=== PATIENT | female | born 1965 | race Caucasian/White ===

== ENCOUNTER 2018-07-28 09:00 | Outpatient (RCR) | payer OTHER, SELFPAY ==
--- NOTE | 2018-07-28 09:03 | BH.SGPN.GN ---
Behaviors/Verbalizations/Mental Status: []Client alert and oriented, casual dress, hygiene tended to. Eye contact good. Motor activity appropriate. Speech within normal limits. Affect congruent, mood anxious. Thoughts linear, logical, no signs of hallucinations or delusions. Reviewed client?s symptom tracker, no signs of suicidal ideation, plan, or intent as of today. Client Response/Progress/Benefit: []Pt was a passive participant, attentive to others and shared thoughts and feelings when elicited by therapist. Emotion for today is hopeful and afraid. Pt identified mental health positive to be following through with attending IOP from her counselor's recommendation. Additional positive identified as opening up to her friends about going to a more intensive counseling program. Pt reported she could relate to peers comments about parents being judgemental and not understanding of mental health. Pt's first day in IOP. Pt seemed to benefit from expressing thoughts and supportive environment. Continued IOP level of care recommended to increase self-awareness, increase positive coping skills and prevent decompensation. Narrative Note: []
--- NOTE | 2018-07-28 10:07 | BH.SGPN.GN ---
Behaviors/Verbalizations/Mental Status: []Client alert and oriented, casually dressed and groomed. Eye contact good. Motor activity appropriate. Speech within normal limits. Affect congruent, mood anxious. Thoughts linear, logical, no signs of hallucinations or delusions. Client Response/Progress/Benefit: []Client responded well to session, engaged throughout activity, occasionally contributing to discussion. Provided insight regarding topic of social supports. Client shared there are barriers to seeking social supports such as ?our support not being steady all the time.? However, there are also consequences of not having a support system such as increased mental health symptoms and feeling overwhelmed. Identified benefits of social support as getting new ideas and not feeling alone. Client was engaged during the group activity and used self-deprecating language at times. The group helped client challenge her negative self-talk. Appeared to benefit from gaining awareness of barriers that keep people from seeking social support as well as connecting with peers. Client?s first day of IOP. No progress to document. Client to continue IOP to prevent decompensation and reduce severity of symptoms.
--- NOTE | 2018-07-29 11:08 | BH.SGPN.GN ---
Addendum entered and electronically signed by Kamari Lopez [facility] 02/13/19 09:19: incorrect date; should be 07/30/18 Original Note: Behaviors/Verbalizations/Mental Status: [Pt eye contact good, casually and neatly dressed, motor activity appropriate, speech normal rate and tone, mood depressed, flat affect, thoughts linear and intact, no evidence of delusions or hallucinations] Client Response/Progress/Benefit: [Pt receptive of session, provided input to discussion and engaged throughout. Pt contributed to finding connections between barriers faced in the challenge activity and those present in utilizing social supports in daily life. She identified a barrier for her is feeling like she can?t ask for help. Pt did well to provide input to discussion about the different types of support and worked with the group to identify strategies for improving development of new supports and utilization of current supports. Pt seemed to benefit from discussion on how to increase supports and expressed connecting with barriers identified by fellow participants. She displayed progress in ability to identify a type of support she would like to improve upon and creating actionable steps to promote follow-through. Indicated wanting to improve use of her 12-step program as support. Expressed plans to do so by identifying and reaching out to new supports and reconnecting with old supports, as well as getting back into going to meetings. Client to continue IOP level of care to prevent decompensation, improve insight into mental health and symptom management, as well as maintain safety.] Narrative Note: []
--- NOTE | 2018-07-30 09:10 | BH.SGPN.GN ---
Behaviors/Verbalizations/Mental Status: [] Eye contact is good. Motor activity is appropriate. Appearance is casual. Speech is Appropriate. Mood is depressed. Affect is flat. Thoughts are linear and logical. No evidence of psychosis. Reviewed daily check in sheet and no reports of suicidal ideations or intent. Client Response/Progress/Benefit: [] Pt was an active participant in group discussion. Emotion for today is anxious and sad. Shared that her son had called her last evening in crisis. States that this is not uncommon as son will often overwhelm himself and then looks to her to solve problems. She reports that she was able to set some boundaries and stepped back from the situation. Reports that in the past she would have taken on the role of problem-solver which would have increased her stress, worry, and depression. Shared that since starting IOP she has felt encouraged and less hopeless. Progress noted per pt report. Benefited from group support, feedback, and encouragement. Will continue in IOP to maintain safety, stabilize mood, and prevent decompensation. . Narrative Note: []
--- NOTE | 2018-07-30 10:10 | BH.SGPN.GN ---
Behaviors/Verbalizations/Mental Status: []Client alert and oriented, neatly dressed and groomed. Eye contact good. Motor activity appropriate. Speech within normal limits. Affect congruent, mood depressed, anxious. Thoughts linear, logical, no signs of hallucinations or delusions. Client Response/Progress/Benefit: []Client responded well to session, passive participant and taking notes. Client listened to the discussion of how life is made of up different internal and external positive and negative forces and how those forces impact one?s mental health. Client nodded that growth comes from finding a balance of internal and external forces as well as taking personal responsibility. Client nodded at the examples of positive forces including healthy coping skills and awareness. Client nonverbally agreed with examples of negative forces to be negative thinking and mental health. Client participated in the activity and took a passive role, but client was able to connect the importance of balance. Client appeared to benefit from gaining awareness of how positive and negative forces can cause growth. ?Client?s second day of IOP, no notable progress. Client continues to demonstrate depressive symptoms and can benefit from ongoing IOP treatment.
--- NOTE | 2018-07-30 11:14 | BH.SGPN.GN ---
Behaviors/Verbalizations/Mental Status: [Client alert and oriented, casually dressed and groomed. Eye contact good. Motor activity appropriate. Speech within normal limits. Affect congruent and mood anxious and euthymic. Thoughts linear, logical, no signs of hallucinations or delusions.] Client Response/Progress/Benefit: [Client willing to participate in activity and provided some input throughout. Pt did well to follow direction, challenge herself to give some input, and encourage fellow participants in group. Pt worked with group to identify positive and negative forces influencing group progress in the activity and did well to relate this back to daily life. Client completed reflection worksheet which identified positive and negative forces that impact mental wellness. Client noted positive forces as: her children, intelligence, compassion, willingness to ask for help, and treatment. Identified negative forces as: negative thoughts, poor boundaries, isolation, and lack of self-awareness. Client seemed to benefit from increased awareness of personal positive and negative forces in life and the impact they have on mental health and wellness. Progress noted in pt ability to identify positive forces of resilience factors supporting progress. Client to continue IOP level of care to continue to promote healthy change behaviors, improve ability to regulation emotions and set healthy boundaries, and prevent decompensation.] Narrative Note: []
--- NOTE | 2018-08-01 09:06 | BH.SGPN.GN ---
Behaviors/Verbalizations/Mental Status: [Eye contact is good. Motor activity is appropriate. Appearance is neat and casual. Speech is Appropriate. Mood is depressed, anxious. Affect is flat. Thoughts are linear and logical. No evidence of psychosis. Reviewed daily check in sheet and no reports of suicidal ideations or intent.] Client Response/Progress/Benefit: [Pt was an active participant in group discussion, providing supportive feedback and able to connect with fellow participants responses. Emotion for today is anxious ?but better than earlier in the week?. Shared that she challenged herself to take a small step in practicing self-care and expressed practicing some mindfulness activities when feeling overwhelmed. She reports that she was able to continue to work on applying thought challenging skills when tempted to try and ?fix? her son?s problems, expressed reminding herself to weigh the pros and cons and think of the potential impacts on reinforcing both of their anxiety. Reports that this is significant progress for her as in the past pt would have struggled to consider her own mental health needs and worried more about others becoming upset with her. Benefited from group support, feedback, and encouragement. Will continue in IOP to maintain safety, stabilize mood, and prevent decompensation.] Narrative Note: []
--- NOTE | 2018-08-01 10:30 | BH.SGPN.GN ---
Behaviors/Verbalizations/Mental Status: []Client alert and oriented, neatly dressed and groomed. Eye contact good. Motor activity appropriate. Speech within normal limits. Affect constricted, mood depressed. Thoughts linear, logical, no signs of hallucinations or delusions. Client Response/Progress/Benefit: []Client responded somewhat well to session, quiet, passive participant. Client did not engage in discussion of quote or topic of personal pitfalls. However, appeared to connect with the topic of personal pitfalls and how they can prevent mental health progress as shown by her nonverbals. Client nodded at the group?s examples of barriers that keep people from mental health progress and examples of personal pitfalls. Client participated in the group activity. Client was passive, but she became frustrated at times and shared ?let?s give up.? The group was able to connect this frustration and urge to quit to their daily lives. The group processed the consequences of feeding into those urges. Client?s first week in IOP. Client appears to be taking notes and gaining insight. Client to continue IOP to prevent decompensation and increase mood stability.
--- NOTE | 2018-08-01 11:30 | BH.SGPN.GN ---
Behaviors/Verbalizations/Mental Status: []Client alert and oriented, casually dressed and groomed. Eye contact good. Motor activity appropriate. Speech within normal limits. Affect constricted, mood depressed. Thoughts linear, logical, no signs of hallucinations or delusions. Client Response/Progress/Benefit: []Limited participation in group discussion, however was attentive and was seen nodding in agreement with group suggestions. Pt completed a worksheet where she identified her own personal pitfalls. Personal pitfalls included: low self-esteem, worried about doing the right thing all the time, not asking for help, saying I'm fine when I'm not, and people pleasing. Group worked together to identify strategies to overcome personal and general pitfalls which included; actively participating in mental health treatment, setting realistic expectations, positive self-talk, utilizing support system, reflection on past experiences, identifying coping skills that are effective and not effective, reframing, and challenging negative thoughts. Benefited from identifying personal and general pitfalls and strategies to over these pitfalls. Will continue in IOP to stabilize mood. Staff continues to provide support and education regarding depression and anxiety as well as encourage medication compliance. Narrative Note: []
--- NOTE | 2018-08-01 14:34 | PCM.HP.BLA ---
History and Physical Date of Admission: 07/28/18 Chief Complaint: The patient is a 53-year old female who is beginning treatment in the intensive outpatient mental health treatment program at [facility]. She has a history of depression, anxiety and is having identity problems. History of Present Illness: The patient states that she has had problems with depression ever since he was a teenager. Depression comes and goes, and has been worsening over the past 3 weeks. She is not depressed every day. Her sleep is poor ( she also has sleep apnea). Her appetite is normal. Her energy level is poor and she lacks motivation to do things. She cries sometimes. She is able to enjoy little in life. She denies irritability. Her concentration is low. She does have hope for the future and she denied current suicidal thoughts, but has had thoughts lately that she would be better off . She also reports to a long history of problems with anxiety. She worries some. She feels tense a lot. She has been worrying lately about what to do with her life. 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 Also, she has become an empty-clarence after her son left for college. She has always had a strong identity as a mother, and it has been difficult for her to give up her mothering. In addition, she tends to do well when her time is structured, and her life has been very unstructured for the past few months. Past Psychiatric History: There have been no psychiatric admissions and the patient has never made any suicide attempts. [facility] and has seen several therapists over the years. She is currently seeing a psychiatrist. Past medicines have included Prozac, Cymbalta and nortriptyline. She said that she did best with nortriptyline but it caused weight gain. Current Psychiatric Medications: Brintellix (taking for 1 week), ativan prn Medical History: He is obese. She has multiple sclerosis and chronic fatigue treated with Gilenya. She has sleep apnea treated with CPAP. Allergies: Sulfa Family Psychiatric History: Her father had problems with anxiety and panic. Personal/Social History: The patient's parents are still and she reports a good relationship with them. She has 1 brother and has a good relationship with him. She has a counseling degree with an MA and an [employer] license. 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 For the past 18 years she was working for [employer] part-time. Before that she was working for [employer]. Review of Systems: Psychiatry: Depression and anxiety as per HPI. She is not suicidal. There is no psychosis. She is cognitively intact. Constitutional she is obese and her weight has been steady. Her energy level is poor. Neurological: Multiple sclerosis. She also has chronic fatigue. All other systems reviewed and are negative, other than as per the medical history above. Examination: The patient presents as a pleasant woman of obese build who wears glasses. She demonstrates good social skills. Vital signs: Height 5 foot 4 inches, weight 260 pounds, respirations 16. Musculoskeletal: No muscle weakness or joint pain. Her speech is fluent and spontaneous. Her language is intact. She is alert and oriented x3. Her affect is cordial and appropriate. Her recent and remote memory are intact. She demonstrates normal attention span and concentration. She has normal thought processes and abstract reasoning. Her associations are intact. There are no hallucinations or delusions and she is not actively suicidal. She demonstrates normal age appropriate fund of knowledge. Mental Status Examination: The patient presents as a pleasant woman of obese build who demonstrates good social skills. Her thoughts are logical and coherent. She reported ongoing symptoms of depression and anxiety. She is not suicidal. There is no psychosis. She is cognitively intact. Diagnoses: [] [place] I: Major depression, recurrent, severe; anxiety disorder and specified; identity disorder [place] II: Deferred. [place] III: Obesity, multiple sclerosis, chronic fatigue, sleep apnea Plan: Patient will continue on Brintellix and Ativan at the current doses. I am adding nortriptyline 10 mg daily. The patient will participate in the intensive outpatient groups. I will see her again for follow-up.
--- NOTE | 2018-08-01 14:51 | HP.PCM_ITS ---
History and Physical Date of Admission: 07/28/18 Chief Complaint: The patient is a 53-year old female who is beginning treatment in the intensive outpatient mental health treatment program at [facility]. She has a history of depression, anxiety and is having identity problems. History of Present Illness: The patient states that she has had problems with depression ever since he was a teenager. Depression comes and goes, and has been worsening over the past 3 weeks. She is not depressed every day. Her sleep is poor ( she also has sleep apnea). Her appetite is normal. Her energy level is poor and she lacks motivation to do things. She cries sometimes. She is able to enjoy little in life. She denies irritability. Her concentration is low. She does have hope for the future and she denied current suicidal thoughts, but has had thoughts lately that she would be better off . She also reports to a long history of problems with anxiety. She worries some. She feels tense a lot. She has been worrying lately about what to do with her life. 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 Also, she has become an empty-clarence after her son left for college. She has always had a strong identity as a mother, and it has been difficult for her to give up her mothering. In addition, she tends to do well when her time is structured, and her life has been very unstructured for the past few months. Past Psychiatric History: There have been no psychiatric admissions and the patient has never made any suicide attempts. She was first treated by a counselor in [facility] for depression and has seen several therapists over the years. She is currently seeing a psychiatrist. Past medicines have included Prozac, Cymbalta and nortriptyline. She said that she did best with nortriptyline but it caused weight gain. Current Psychiatric Medications: Brintellix (taking for 1 week), ativan prn Medical History: He is obese. She has multiple sclerosis and chronic fatigue treated with Gilenya. She has sleep apnea treated with CPAP. Allergies: Sulfa Family Psychiatric History: Her father had problems with anxiety and panic. Personal/Social History: The patient's parents are still and she reports a good relationship with them. She has 1 brother and has a good relationship with him. She has a counseling degree with an MA and an [employer] license. 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 For the past 18 years she was working for [employer] part-time. Before that she was working for [employer]. Review of Systems: Psychiatry: Depression and anxiety as per HPI. She is not suicidal. There is no psychosis. She is cognitively intact. Constitutional she is obese and her weight has been steady. Her energy level is poor. Neurological: Multiple sclerosis. She also has chronic fatigue. All other systems reviewed and are negative, other than as per the medical history above. Examination: The patient presents as a pleasant woman of obese build who wears glasses. She demonstrates good social skills. Vital signs: Height 5 foot 4 inches, weight 260 pounds, respirations 16. Musculoskeletal: No muscle weakness or joint pain. Her speech is fluent and spontaneous. Her language is intact. She is alert and oriented x3. Her affect is cordial and appropriate. Her recent and remote memory are intact. She demonstrates normal attention span and concentration. She has normal thought processes and abstract reasoning. Her associations are intact. There are no hallucinations or delusions and she is not actively suicidal. She demonstrates normal age appropriate fund of [place]. Mental Status Examination: The patient presents as a pleasant woman of obese build who demonstrates good social skills. Her thoughts are logical and coherent. She reported ongoing symptoms of depression and anxiety. She is not suicidal. There is no psychosis. She is cognitively intact. Diagnoses: [] [place] I: Major depression, recurrent, severe; anxiety disorder and specified; identity disorder [place] II: Deferred. [place] III: Obesity, multiple sclerosis, chronic fatigue, sleep apnea Plan: Patient will continue on Brintellix and Ativan at the current doses. I am adding nortriptyline 10 mg daily. The patient will participate in the intensive outpatient groups. I will see her again for follow-up.
--- NOTE | 2018-08-03 16:31 | BH.MDN_ITS ---
Multi-Disciplinary Note - Note 30-min Individual Time Started:: 12:36 Date: 08/01/18 Purpose of session/treatment goals addressed:: Purpose of session was to asses pt's current symptoms and stressors. Other topics included: identifying IOP treatment goals and setting small goal for weekend. Eye Contact:: Good Motor Activity:: Appropriate Appearance:: Casual Speech:: Appropriate Mood:: Depressed, Other - tearful Affect:: Constricted Thoughts:: Linear, Logical, No evidence of hallucinations/delusions noted Staff Interventions:: Therapist used open ended questions to elicit pt's current symptoms and stressors. Therapist inquired pt's thoughts about IOP. Therapist assisted pt with identifying IOP treatment goals. Therapist inquired small goal for weekend. Provided support by using active listening and validating emotions. Client Response:: Client reported I really it when asked about how IOP is going for her thus far. 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 Client shared after today's group sessions she realizes she tends to quit when she feels uncomfortable emotions or when something seems to difficult. Client reported she believes she quits because she doesn't want to fail so it's easier to stop trying then to fail. Client shared she also discovered that laughter and having a good sense of humor to be helpful with improving her mood. Client stated she wants to feel better which she identified wanting to decrease depression, increase follow through of healthy coping, decrease giving up, and increase positive thoughts. Client reported she knows healthy skills but has always struggled with applying what she knows. Client identified small goal for this weekend is to journal because it's a skill that she has found to be helpful but hasn't done in awhile. Risks/Concerns:: Client denies suicidal thoguhts, intention or plan to date. Progress Toward Goals/Plan:: Client showing progress with increased insight into how she deals with stress by giving up and recognizes importance of following through with healthy skills she knows. Session focused on identifying treatment goals for IOP. Client to continue IOP level of care to decrease depression, increase utilization of healthy coping and prevent decompensation. Time Stopped:: 13:00
--- NOTE | 2018-08-04 09:05 | BH.SGPN.GN ---
Behaviors/Verbalizations/Mental Status: [] Eye contact is good. Motor activity is appropriate. Appearance is casual. Speech is Appropriate. Mood is anxious. Affect is congruent. Thoughts are linear and logical. No evidence of psychosis. Reviewed daily check in sheet with 3/5 for suicidal ideations and 0/5 for intent. Therapist notified Client Response/Progress/Benefit: [] Pt was an active participant in group discussion. Emotion for today is anxious. Shared that she came in to IOP today instead of tomorrow to be proactive. Shared that she had anxiety about sharing too much about herself and her symptoms to her therapist on Saturday. This was uncomfortable and she believes that if she let herself ruminate on this another day it would lead to not showing for IOP tomorrow. Group praised her for her foresight. She also reports having a conversation with her on their communication skills based on group topics from last week and is hopeful this will have a positive impact. Also reports that she utilized some thought reframing skills over the holiday weekend which helped her be more social with family rather than ruminate that her two children were unable to make it back from college. Progress noted per pt. Will continue in IOP to maintain safety, prevent decompensation, and increase daily functioning. Narrative Note: []
--- NOTE | 2018-08-04 10:05 | BH.SGPN.GN ---
Behaviors/Verbalizations/Mental Status: []Pt eye contact good, casually dressed, motor activity appropriate, speech normal rate and tone, mood dysthymic, constricted affect, thoughts linear and intact, no evidence of delusions or hallucinations. Client Response/Progress/Benefit: []Client passive participant, not providing input throughout discussion, however appeared to attentively listen to peers. Client nodded that viewing situations as impossible can negatively impact one?s mental health. Client agreed with peers comments that seeing things as impossible sets you up to not try new things or to overcome difficult situations. Client nodded to others comments that some things appear impossible, but if keep trying likely can find a way to overcome or accomplish the difficult task. Client engaged in the group activity and the group did not complete the activity during second group. Client struggled with fixed thinking pitfalls during activity as evidenced by client stating she wanting to give up several times throughout activity, however despite negative thoughts she persisted and did not give up. Client appeared to benefit from gaining awareness how viewing situations as impossible can negatively impact mental health progress. Client showing progress with not giving into negative thought patterns of giving up when things get difficult. client to continue IOP level of care to decrease depression, increase use of healthy coping and prevent decompensation. Narrative Note: []
--- NOTE | 2018-08-04 11:10 | BH.SGPN.GN ---
Behaviors/Verbalizations/Mental Status: [Client maintained good eye contact, casually dressed and appropriate grooming, motor activity appropriate, speech normal rate and tone, mood depressed, affect constricted, thoughts linear, logical, no evidence of delusions or hallucinations.]] Client Response/Progress/Benefit: [Pt attentive, did well to participate in discussion and growth mindset reflection activity. She brainstormed with the group on how fixed mindset thoughts experienced in the activity impacted ability to complete the task at hand. Pt indicated thoughts of ?this is annoying? and ?we?re never going to get it? caused her to become frustrated and link desired to give up. Worked to identify important components of a growth mindset such as being willing to keep trying despite setbacks. Pt expressed having many fixed mindset thoughts but difficulties in using growth mindset reframes. With reflection and assistance from the group she was able to apply cognitive restructuring to reframe fixed thoughts of ?I?m too old to make a difference in the world? with growth mindset thought of ?I can do something meaningful today?. Benefitted from discussing benefits of growth mindset and strategies for reframing fixed thoughts. Progress in pt ability to challenge negative thoughts about self despite struggling with shutting down or wanting to give up. Continued IOP tx recommended to prevent decompensation, increase application of thought challenge skills and improve self-esteem, and continue to decrease intensity and severity of depression.] Narrative Note: []
--- NOTE | 2018-08-06 09:05 | BH.SGPN.GN ---
Behaviors/Verbalizations/Mental Status: [] Eye contact is good. Motor activity is appropriate. Appearance is casual. Speech is Appropriate. Mood is depressed. Affect is flat. Thoughts are linear and logical. No evidence of psychosis. Reviewed daily check in sheet and no reports of suicidal ideations or intent. Client Response/Progress/Benefit: [] Pt was an active participant in group discussion. Emotion for today is Scared. Shared that she has been ruminating extensively on the fact that she is not currently working. Verbalized several times that she should be working however understands that increased stress could exacerbate her mental wellness. Shared some positives and reports being more hopeful however is scared. Did not elaborate on what exactly is causing her to be fearful. Group provided feedback and challenged cognitive distortions. Benefited from group feedback. Will continue in IOP to maintain safety, prevent decompensation, and decreased depressive and negative thoughts. Narrative Note: []
--- NOTE | 2018-08-06 10:09 | BH.SGPN.GN ---
Behaviors/Verbalizations/Mental Status: []Client alert and oriented, casually dressed and groomed. Eye contact good. Motor activity appropriate. Speech within normal limits. Affect congruent, mood euthymic. Thoughts linear, logical, no signs of hallucinations or delusions. Client Response/Progress/Benefit: []Pt receptive of session AEB pt . Did well to participate in the activity and provide reflective input during session. Pt appeared to connect with various definitions of resilience provided by the group as well as ideas for how resilience can have positive impacts mental health and wellness. Pt agreed with peers that without resilience it is a lot harder to overcome difficulties or learn to ?bounce back?. Pt engaged in small group discussion about the various strategies that can help strengthen one's resilience. Indicated that making connections is an important component of resilience as it ?gives us positive reinforcement and perspective?. Pt seemed to benefit from increased awareness of various components that can contribute to increased resilience. Progress noted in his ability to provide insight as to how each resilience component can apply to own life. Continued IOP recommended to prevent decompensation, increase skill application, and continue to improve healthy boundary setting. Narrative Note: []
--- NOTE | 2018-08-06 11:12 | BH.SGPN.GN ---
Behaviors/Verbalizations/Mental Status: []Client alert and oriented, neatly dressed and groomed. Eye contact good. Motor activity appropriate. Speech within normal limits. Affect constricted, mood euthymic. Thoughts linear, logical, no signs of hallucinations or delusions. Client Response/Progress/Benefit: []Client reported at first, she was convinced that the fiber heel piece shaper ?was lying that it could be done.? However, the group stayed resilient and used different ideas to be successful. Client shared ?we were flexible to new ideas? which can also help people be resilient in their daily lives. Client was given a stress ball as a reminder of resilience. On her stress ball, client wrote ?resilience is learning, challenging, and changing. I can always learn.? Client shared this will remind her to have hope and optimism. Client reported she wants to work on moving towards her goals to further improve personal resilience. Client shared she will do this by prioritizing what goals are most important to her. Client appeared to benefit from identifying personal resilience factors. Progress noted as client was more active in group today and she reported following through with her goal from individual session. Client to continue IOP as she can increase mood stability and consistent use of coping skills.
--- NOTE | 2018-08-08 09:05 | BH.SGPN.GN ---
Behaviors/Verbalizations/Mental Status: []Client alert and oriented, neatly dressed and groomed. Eye contact good. Motor activity appropriate. Speech within normal limits. Affect congruent-tearful, mood depressed. Thoughts linear, logical, no signs of hallucinations or delusions. Reviewed client?s symptom tracker, 1/5 for suicidal ideation, 0/5 for plan, or intent as of 08/08/18. Individual therapist notified. Client Response/Progress/Benefit: []Client responded well to session, quiet, but providing input occasionally. Client reports feeling ?depressed? today. Client shared she continues to struggle with feeling hopeless and depressed, so her doctor recently changed her medications. Client reported ?I?m trying not to be negative and think that won?t work.? Client able to recognize use of cognitive distortions. Client?s mental health wins include opening up to her doctor and one of her friends about client?s mental health. Client shared it is challenging for her to be vulnerable, so this was significant for client. Client became tearful and shared her friend did not provide the support client was hoping to receive, but that client was still proud of herself. Client appeared to benefit from connecting with peers and processing stressors. Progress noted in reaching out to supports, but client continues to report mood dysregulation.
--- NOTE | 2018-08-08 10:18 | BH.SGPN.GN ---
Behaviors/Verbalizations/Mental Status: []Client alert and oriented, casually dressed and groomed. Eye contact fair. Motor activity appropriate. Speech within normal limits. Affect congruent to topic being discussed, mood euthymic. Thoughts linear, logical, no signs of hallucinations or delusions. Client Response/Progress/Benefit: []Client responded well to session, attentive and participating in small group discussion. Group identified the benefits to setting boundaries as well as the consequences of not setting healthy boundaries. Client reported she has a difficult time saying no to others because she doesn't want to disappoint others. Client stated she believes other people deserve to engage in self-care, but doesn't believe she has the right to engage in self-care. Client engaged during discussion of the different types of boundaries and engaged in the self-assessment activity. Client seemed to benefit from increased awareness how poor boundaries can negatively impact mental health. Client to continue IOP tx to increase use of healthy coping skills, prevent decompensation, and challenge distorted thoughts. Narrative Note: []
--- NOTE | 2018-08-08 11:24 | BH.SGPN.GN ---
Behaviors/Verbalizations/Mental Status: [Client alert and oriented, casual dress, hygiene appropriate. Eye contact good. Motor activity appropriate. Speech within normal limits. Affect congruent, mood anxious and euthymic. Thoughts linear, logical, no signs of hallucinations or delusions. ] Client Response/Progress/Benefit: [Pt responded well to session, active participant AEB willingness to provide input and ask questions throughout. Pt did well to engage in the boundary self-assessment activity and worked with group to further process. Pt discussed that she has been becoming much more aware of how her difficulties in maintaining healthy boundaries with her son has impacted her anxiety and increased feelings of agitation. Noted that she has been working on improving boundary setting skills but continues to struggle with consistency and feelings of guilt associated. Appeared to benefit from group discussion on strategies for further improving personal boundaries. Identified wanting to improve her ability to set and maintain healthy boundaries with others, specifically in regard to improving her ability to say ?no? to her son or refrain from doing things for him. Progress noted in pt ability to identify impact of current boundaries on mental health progress and emotion regulation skills. Pt to continue IOP tx to maintain gains made, improve communication and boundary setting skills, and continue to promote healthy change behaviors.] Narrative Note: []
--- NOTE | 2018-08-08 14:36 | BH.MDN ---
Multi-Disciplinary Note - Note 60-min Individual Time Started:: 12:37 Date: 08/08/18 Purpose of session/treatment goals addressed:: Purpose of session was to assess pt's current symptoms and stressors. Other topics included: reviewing homework from last session, reviewing cognitive triangle, and generalization of healthy coping skills. Eye Contact:: Fair Motor Activity:: Appropriate Appearance:: Casual Speech:: Appropriate Mood:: Depressed Affect:: Constricted Thoughts:: Linear, Logical, No evidence of hallucinations/delusions noted Staff Interventions:: Therapist used open ended questions to elicit pt's current symptoms and stressors. Therapist reviewed homework from last session. Provided psychoeducation on the cognitive triangle. Assisted pt with challenging negative thoughts. Worked with pt to identify strategies to help increase generalization of healthy skills. Client Response:: Pt reported she has been struggling with depressed mood. Pt unable to identify specific trigger. Pt stated she did not follow through with goal of journaling. Pt reported she is frustrated with herself because she knows skills, but continues to not use the skills to help herself. Pt connected with cognitive triangle, recognizing interconnection between thoughts, behaviors, and emotions. Responded well to pt challenging her distorted thoughts and accepted help to reframe thoughts. Pt stated she thinks if she includes use of skills into her daily schedule then she might be more likely to follow through with using skills. Risks/Concerns:: Pt endorses passive thoughts of about wishing she didn't wake up. Pt denies thoughts of wanting to actually kill herself. Denies suicidal intention to plan. Pt future focused. Agreeable to go to nearest emergency room or call 911 if unable to maintain safety. Progress Toward Goals/Plan:: Progress noted with pt reporting she was able to successfully defeat a self-harm thought by challenging the negative thought. Pt continues to report depressed state with low motivation, fatigue, and not generalizaing her healthy skills consistently. Recommended to continue IOP to increase consistent appliation of healthy skills, challenge negative thoughts and prevent decompensation. Time Stopped:: 13:30
--- NOTE | 2018-08-11 09:06 | BH.SGPN.GN ---
Behaviors/Verbalizations/Mental Status: [Pt alert and oriented, neat and casual dress, grooming appropriate. Eye contact good. Motor activity appropriate. Speech within normal limits. Affect congruent, mood anxious, dysthymic. Thoughts linear, logical, no signs of hallucinations or delusions. Reviewed client?s symptom tracker, no signs of suicidal ideation, plan, or intent as of today.?]] Client Response/Progress/Benefit: [Pt receptive of session and participated in group discussion. Emotion for today is mostly calm but kind of anxious which she attributes to beginning to see more consistent improvements in progress and ability to regulate emotions; however, continues to struggle with worry about taking additional steps towards reducing isolation and continuing to reinforce boundaries with her son. Pt indicated that she is feeling more confident in boundary setting but would benefit from continuing to take small steps in reinforcing boundaries. Pt increased use of distress tolerance skills is progress and discussed plans to begin addressing a small goal she has been putting off. Recommended continued IOP tx to further improve use of anxiety management and effective communication skills, as well as to prevent decompensation. ]] Narrative Note: []
--- NOTE | 2018-08-11 10:25 | BH.SGPN.GN ---
Behaviors/Verbalizations/Mental Status: []Client alert and oriented, causally dressed and groomed. Eye contact fair. Motor activity appropriate. Speech within normal limits. Affect constricted, mood dysthymic. Thoughts linear, logical, no signs of hallucinations or delusions. Client Response/Progress/Benefit: []Client passive participant AEB pt providing limited input throughout discussion, but appeared to listen attentively to peers. Connected with discussion on how coping with external crisis by using unhealthy coping skills could lead to personal crisis. Client completed the personal warning signs worksheet and identified crisis warning signs to include: racing thoughts, increased impulsive behavior, isolation and apathy. Benefited from group by increasing awareness of crisis and personal warning signs. Will continue IOP tx to stabilize moods, increase healthy coping and prevent decompensation. Narrative Note: []
--- NOTE | 2018-08-11 11:25 | BH.SGPN.GN ---
Behaviors/Verbalizations/Mental Status: []Client alert and oriented, neatly dressed and groomed. Eye contact good. Motor activity appropriate. Speech within normal limits. Affect constricted, mood anxious. Thoughts linear, logical, no signs of hallucinations or delusions. Client Response/Progress/Benefit: Client responded well to session as evidenced by client participating when prompted and listening attentively to others. Client identified her warning signs for crisis and gained further awareness of her earliest warning signs. Client?s top three early warning signs were a more depressed mood, racing thoughts, and drop in functioning. Client recognized that awareness of these warning signs can prevent further crisis and help client utilize healthy coping skills to break the cycle. Client created a crisis action plan to help client better manage warning signs for crisis. Client?s plan included coping skills such mindfulness techniques, motivational reminders, and positive supports. Client selected three items that will help her remember these crisis interventions including a rock, a clothespin, and a bead. Client appeared to benefit from creating a crisis action plan and increasing her self-awareness. Client to continue IOP to increase mood stability and reduce intensity of symptoms.
--- NOTE | 2018-08-14 14:37 | BH.MTP_ITS ---
Master Treatment Plan - Patient Information Program Physician:: Dr. Jessica Primary Therapist:: Latrice Lal, [facility] - Psychiatric Diagnoses Psychiatric Diagnoses:: Major depression, recurrent, severe; anxiety disorder unspecified Diagnosis Code(s):: F33.2 - Estimated LOS Estimated LOS (in weeks):: 6 Problem/Goal #1 - Problem/Goal #1 Stated Goal:: Client will reduce depression, feelings of hopelessness, and suicidal ideation due to Major Depressive Disorder through Intensive Outpatient Program. Description of Barriers: Pt has hx of not applying healthy skills and strategies which could be barrier to treatment progress. Pt's negative thinking, distorted thought patterns, and guilt from past choices could be potential barriers to progress. Functional Impact: Pt's mental health symptoms impacting pt's ability to function at baseline. Pt has loss of interest in things she once found enjoyable, extreme difficulty to complete daily tasks or chores, and isolative behaviors. Pt's depressive symptoms impacted pt's ability to funtion at work which resulted in termination of employment. Goal Relevant Strengths/Supports: Pt is intelligent, self-aware and verbalizes desire to get better. - Objectives Objective #1 Stated Objective: Identify and replace 3-4 distorted thought patterns that reinforce depressive symptoms. Interventions: Therapist will help client identify distorted, negative beliefs about self and world and replace those messages with positive, affirmative messages. Discharge Criteria: Client will have achieved this goal when can identify at least 3 distorted thought patterns and replace those messages with positive, rational responses. Target Date: 09/08/18 Review Date: 08/25/18 Objective #2 Stated Objective: Pt will decrease depressive symptoms AEB pt?s score on the DSM 5 cross-cutting measure and improve pt?s daily functioning. Interventions: Through groups and individual therapy, pt will be provided with education on cognitive distortions, mistaken beliefs, and identifying and combating negative self-talk. Therapist will assist pt with getting back into the activities she once enjoyed as well as increasing healthy coping strategies. Discharge Criteria: Pt will have met this goal when pt?s score on the DSM 5 cross cutting measure for depression has been decreased and per pt?s report daily functioning has improved. Target Date: 09/08/18 Review Date: 08/25/18 Problem/Goal #2 - Problem/Goal #2 Stated Goal:: Stabilize anxiety level while increasing ability to function on daily basis. Description of Barriers: Pt has hx of not applying healthy skills and strategies which could be barrier to treatment progress. Pt's negative thinking, distorted thought patterns, and guilt from past choices could be potential barriers to progress. Functional Impact: Pt's mental health symptoms impacting pt's ability to function at baseline. Pt has loss of interest in things she once found enjoyable, extreme difficulty to complete daily tasks or chores, and isolative behaviors. Pt's depressive symptoms impacted pt's ability to funtion at work which resulted in termination of employment. Goal Relevant Strengths/Supports: Pt is intelligent, self-aware and verbalizes desire to get better. - Objectives Objective #1 Stated Objective: Client will learn and utilize 2-3 healthy coping strategies to manage anxious symptoms. Interventions: Therapist will assist client in learning internal coping strategies to manage anxious symptoms, along with helping client identify triggers. Discharge Criteria: Client will have achieved this goal when can verbalize and has practiced at least 2 healthy coping strategies that help manage anxious symptoms. Target Date: 09/08/18 Review Date: 08/25/18 Objective #2 Stated Objective: Pt will decrease anxious symptoms AEB pt?s score on the DSM 5 cross-cutting measure improve pt?s daily functioning. Interventions: Through groups and individual therapy, pt will be provided education about anxiety?s impact on body and common physiological reaction to anxiety. Therapist will teach pt appropriate breathing techniques and build healthy coping skills to manage daily anxieties. Discharge Criteria: Pt will have met this goal when pt?s score on the DSM 5 cross cutting measure for anxiety has been decreased and per pt?s report daily functioning has improved. Target Date: 09/08/18 Review Date: 08/25/18
== END 2018-08-12 23:59 ==
LOC: BHIOP 09:00
PROVIDERS: Family Provider Nurse Practitioner Family; PCP Nurse Practitioner Family; Referring Provider Psychiatry & Neurology Psychiatry; Visit Provider Psychiatry & Neurology Psychiatry
DX: F33.2 Major depressive disorder, recurrent severe without psychotic features (principal); F41.9 Anxiety disorder, unspecified; F64.9 Gender identity disorder, unspecified; E66.9 Obesity, unspecified; G35 Multiple sclerosis; R53.82 Chronic fatigue, unspecified; G47.30 Sleep apnea, unspecified; Z79.899 Other long term (current) drug therapy
CPT/HCPCS: H0035; 90832; 90837; 90853

== ENCOUNTER 2018-08-13 09:01 | Outpatient (RCR) | payer OTHER, SELFPAY ==
--- NOTE | 2018-08-13 09:09 | BH.SGPN.GN ---
Behaviors/Verbalizations/Mental Status: [Pt alert and oriented, neat and casual dress, grooming appropriate. Eye contact good. Motor activity appropriate. Speech within normal limits. Affect congruent, mood anxious, dysthymic. Thoughts linear, logical, no signs of hallucinations or delusions. Reviewed client?s symptom tracker, no signs of suicidal ideation, plan, or intent as of today.?] Client Response/Progress/Benefit: [Pt receptive of session and participated in group discussion. Emotion for today is anxious which she attributes to increased stress regarding suggesting she begin looking for a job. Pt indicated that she does not feel ready to return to work yet and is planning to discuss this with her . Noted additional stressor as her son calling in crisis on Saturday. 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 Pt increased use of distress tolerance skills is progress. Additional mental health win as beginning her CEU courses for work which she has been putting off, this again displays progress as pt reports a hx of poor follow through. Recommended continued IOP tx to further improve use of anxiety management and effective communication skills, as well as to prevent decompensation. ] Narrative Note: []
--- NOTE | 2018-08-13 10:17 | BH.SGPN.GN ---
Behaviors/Verbalizations/Mental Status: [Client alert and oriented, casually and neatly dressed. Eye contact fair to good. Motor activity appropriate. Speech within normal limits. Affect flat, mood dysthymic. Thoughts linear, logical, no signs of hallucinations or delusions. ] Client Response/Progress/Benefit: [Pt receptive to session, engaged and actively listening throughout discussion on stress AEB taking notes and providing some input. Able to brainstorm the positive and negative aspects of stress. Pt expressed connecting most with impacts of unmanaged stress and reported this can result in increased depression and unhealthy coping. Appeared to benefit from gaining awareness of own current stressors and learning about the impact stress has on overall wellbeing. She participated in identifying current stressors impacting her mental health. Pt's current stressors include: grief, depression/mental health sx, money, physical health, her son, and her parent?s wellbeing. Pt noted that her son is currently the largest stressor as she struggles with maintaining healthy boundaries. Progress noted in improved ability to identify impact of current stressors on mental health and wellbeing. Recommended continued IOP tx to maintain stability, continue to promote skills for reducing anxiety and depressive sx, as well as improving use of stress management skills. ] Narrative Note: []
--- NOTE | 2018-08-13 14:30 | BH.MDN ---
Multi-Disciplinary Note - Note 45-min Individual Time Started:: 12:25 Date: 08/13/18 Purpose of session/treatment goals addressed:: Purpose of session was to assess pt's current symptoms and stressors. Other topics included: reviewing homework, processing guilt, and identifying small goals for the week. Eye Contact:: Good Motor Activity:: Appropriate Appearance:: Casual Speech:: Appropriate Mood:: Depressed, Other - tearful Affect:: Constricted Thoughts:: Linear, Logical, No evidence of hallucinations/delusions noted Staff Interventions:: Therapist reviewed pt's homework, exploring challenges with accomplishing some of the goals. Therapist used open ended questions to elicit pt's current symptoms and stressors. Therapist gently challenged pt's distorted thought patterns and assisted pt with identifying negative impact of overcompensating for past mistakes. Therapist provided support by using active listening and validating emotions. Client Response:: Pt reported she completed her homework from last week of identifying at least 3 positives from her day. Pt stated she was able to complete that task every day except on Saturday in which she was only able to identify one positive. Pt reported she thinks she struggled to identify positives that day because she had been emotionally impacted by her son's crisis. Pt stated her son informed her that he had been fired from his job, which resulted in pt ruminating how her son could stay at college since having a maintenance job titles job paid for his living expenses. Pt shared she was emotionally upset for over an hour but was able to use her thought record log to help her challenge her negative thoughts which eventually helped her move on. Pt stated she has gained insight that her youngest son tends to impact her emotions frequently. Pt identified her past alcohol abuse when her son was young has resulted in a lot of guilt. Pt admitted she tends to overcompensate by trying to fix situations for her son so that he doesn't have to deal with uncomfortable emotions. Pt recognizes ruminating on her past choices are not helping because she can't change the past. With assistance from therapist pt reported she knows it would help her to talk to her sons about her past choices and apologize, but stated she wasn't sure she was ready. Pt identified she has been working on trying to model appropriate behavior for her sons so she can teach her sons skills she didn't teach when they were young. Pt identified her small goal is to continue identifying 3 positives every evening and to do one activity with another friend. Risks/Concerns:: Pt denies suicidal ideation, plan or intention to date. Progress Toward Goals/Plan:: Pt is showing progress with following through on completing assigned homework from sessions and utilizing healthy coping skills outside of treatment environment. Pt also showing progress with increased insight into how her past choices continue to bring on feelings of guilt which negatively impacts her mental health. Pt continues to struggle with distorted thought patterns and difficulty managing emotions at times. Pt to continue IOP level of care to decrease depression and prevent decompensation. Time Stopped:: 13:15
--- NOTE | 2018-08-15 09:06 | BH.SGPN.GN ---
Behaviors/Verbalizations/Mental Status: []Client alert and oriented, neatly dressed and groomed. Eye contact good. Motor activity appropriate. Speech within normal limits. Affect constricted, mood anxious, euthymic. Thoughts linear, logical, no signs of hallucinations or delusions. Reviewed client?s symptom tracker, no risk for suicidal ideation, plan, or intent as of 08/15/18. Client Response/Progress/Benefit: []Client responded well to session, providing positive feedback. Client reports she feels ?anxious? today as she was completing her IOP homework and it ?triggered some things.? Client shared she plans to talk with her therapist about it which should help reduce anxiety, per her report. Client reported she had to take an Ativan this morning to help manage her symptoms. Client?s mental health wins include following through with IOP goals and finally ?using coping skills for me, not to please others.? Client stated when she first started IOP, she would try the coping skills and complete the homework ?to please my counselor.? However, now client shared she realizes she will not change if she does not do it for herself. Client also gained awareness that ?I quit things really easy.? Client reported yesterday she recognized she was about to quit while doing the laundry, but instead she followed through and it made her feel accomplished. Client appeared to benefit from reflecting on gains. Progress noted in client?s increased awareness and follow through. Client to continue IOP to promote mood stability and consistent use of healthy coping skills.
--- NOTE | 2018-08-15 10:15 | BH.SGPN.GN ---
Behaviors/Verbalizations/Mental Status: []Pt eye contact good, casually dressed, motor activity appropriate, speech normal rate and tone, mood euthymic, constricted affect, thoughts linear and intact, no evidence of delusions or hallucinations. Client Response/Progress/Benefit: []Client engaged in both group discussion and activity. Client reported she doesn't really think about giving herself credit for making small steps towards her goals. Client stated she can recognize the benefits from noting small progress, but reported it can be hard to actually apply the strategy. Group worked together to identify the benefits of setting goals which included; increased motivation, maintenance in progress, accountability, sense of accomplishment, and hope. Group discussed the barriers to following through with completing a goals which included; high expectations, low motivation, negative self-talk, putting other?s needs first, hopelessness, and not knowing where to start. Client reported another barrier that gets in her way of setting goals is past failures on goals. Client was attentive during psychoeducation on developing SMART (Specific, Measurable, Achievable, Realistic, Timely) goals as a tool to help with goal setting. Client seemed to benefit from group by learning effective strategies for goal-setting and identifying barriers to completing goals. Narrative Note: []
--- NOTE | 2018-08-15 11:20 | BH.SGPN.GN ---
Behaviors/Verbalizations/Mental Status: []Pt alert and oriented, eye contact good, casually dressed, motor activity appropriate, speech normal rate and tone, mood dysthymic, congruent affect, thoughts linear and intact, no evidence of delusions or hallucinations. Client Response/Progress/Benefit: []Pt listened attentively to others and provided input at times throughout discussion. Pt identified her short-term SMART goal is to do her cognitive distortions thought log each evening over this weekend. Pt stated this goal will benefit her by making it a habit to be more mindful of her thought patterns. Pt identified not having time as one obstacle that could get in the way of her accomplishing her goal. Pt stated she can overcome time barrier by putting it into her daily schedule. Pt stated another barrier is being interrupted by others to do something else which she stated she can overcome this barrier by setting boundaries. Pt seemed to benefit from creating a SMART goal. Pt to continue IOP level of care to continue challenging distorted thoughts, decrease depression and prevent decompensation. Narrative Note: []
--- NOTE | 2018-08-18 09:05 | BH.SGPN.GN ---
Behaviors/Verbalizations/Mental Status: []Client alert and oriented, neatly dressed and groomed. Eye contact good. Motor activity appropriate. Speech within normal limits. Affect congruent to mood, mood anxious. Thoughts linear, logical, no signs of hallucinations or delusions. Reviewed client?s symptom tracker, no risk for suicidal ideation, plan, or intent as of 08/18/18. Client Response/Progress/Benefit: []Client responded well to session, attentive and listening to peers. Client reports feeling ?anxious and nervous? today due to upcoming plans and ?all the what ifs.? The group helped client recognize her distorted thinking and shared thought challenging strategies. Client identified her mental health wins over the weekend to be using her calming coping skills to prevent a panic attack while driving and making jewelry. Client appeared to benefit from verbalizing her anxious thoughts and gaining support from peers. Progress noted in client?s generalization of coping skills, but she can continue to benefit from IOP to increase mood stability and improve daily functioning.?
--- NOTE | 2018-08-18 10:12 | BH.SGPN.GN ---
Behaviors/Verbalizations/Mental Status: [Pt alert and oriented, casually dressed. Eye contact good. Motor activity appropriate. Speech within normal limits. Affect flat, mood dysthymic. Thoughts linear, logical, no signs of hallucinations or delusions.] Client Response/Progress/Benefit: [Pt responded well to session, attentive and providing input throughout. Pt connected with discussion on different types of anxiety, as well as the difference between ?normal? anxiety and anxiety disorders. When processing quote pt stated anxiety has prevented her from asking for help and led to doing more for her children than they needed or asked for. Pt helped the group identify examples of the various ways anxiety manifests and symptoms associated with thoughts, physical symptoms, and safety behaviors. Pt gained awareness of personal physical symptoms which included: racing heart, tense muscles, fidgeting, and headache. Pt identified avoiding anxious situations, crying spells, shutting down, and becoming controlling as safety behaviors pt has engaged in that provide short term relief but increase anxiety over time. Pt appeared to benefit from gaining insight to safety behaviors and how anxiety manifests itself, as well as harmful impact of safety behaviors on mental health. Appears to be progressing with increasing awareness of mental health symptoms and impact on functioning. Will continue IOP to promote continued skill application, improve boundaries, improve mood stability, and prevent decompensation.] Narrative Note: []
--- NOTE | 2018-08-18 11:15 | BH.SGPN.GN ---
Behaviors/Verbalizations/Mental Status: []Pt eye contact good, casually dressed, motor activity appropriate, speech normal rate and tone, mood anxious, congruent affect, thoughts linear and intact, no evidence of delusions or hallucinations. Client Response/Progress/Benefit: []Client responded well to session, listening attentively to others and providing input at times. Client identified shaking, feeling on edge, and chest tightness as common physical symptoms she experiences when anxious. Client stated seeking reassurance, isolation and avoidance of situations that can increase her anxiety are her safety behaviors. Client agreed with peers that one cannot prevent anxious thoughts from occurring, but can learn strategies to manage anxiety. Client appeared to connect with mindfulness and the different ways one can practice mindfulness. Client reported she currently uses pacing and taking a walk as her healthy strategies to manage anxiety. Client created a mindfulness ?menu? and reported she plans to try using 5 senses, labeling her anxious thoughts, and diaphragmatic breathing as mindfulness and relaxation techniques to manage anxiety. Client appeared to benefit from practicing in the moment mindfulness techniques. Progress noted as client is showing improved mood and awareness of distorted thoughts. Client to continue IOP level of care to maintain gains, decrease intrusive thoughts and prevent decompensation. Narrative Note: []
--- NOTE | 2018-08-18 15:12 | BH.MDN_ITS ---
Multi-Disciplinary Note - Note 45-min Individual Time Started:: 12:18 Date: 08/18/18 Purpose of session/treatment goals addressed:: Purpose of session was to assess pt's current symptoms and stressors. Other topics included challenging distorted thoughts and self-care. Eye Contact:: Good Motor Activity:: Appropriate Appearance:: Casual Speech:: Appropriate Mood:: Depressed, Other - tearful Affect:: Constricted Thoughts:: Linear, Logical, No evidence of hallucinations/delusions noted Staff Interventions:: Therapist used open ended questions to elicit pt's current symptoms and stressors. Therapist attempted to review homework from last session however pt did not complete. Therapist elicited barriers that prevented pt from following through with goals. Therapist assisted pt with challenging and reframing negative and distorted thought patterns. Therapist provided psychoeducation about benefits and importance of self-care. Provided pt with self-care wheel to complete for homework. Client Response:: Pt reported she had an overall good weekend with improved mood and went to a movie with her . Pt stated she did not complete the homework from individual/group therapy sessions from last week. Pt attributed the lack of follow through with her goals to feeling better. Pt stated she has hx of only using her skills when she thinks she needs them. Pt reported she recognizes it is beneficial to utilize her skills consistently and not only when she is in crisis. Pt stated she has always struggled with lack of follow through expressing frustration with not knowing why she doesn't follow through. Pt agreeable to identify barriers when she doesn't follow through with a goal. Pt connected with idea of engaging in more self-care. Risks/Concerns:: Pt denies suicidal ideation, plan or intention to date. Progress Toward Goals/Plan:: Progress noted with improved mood AEB pt report. Pt also showing progress with increased self-awareness of thoughts and coping sk ills that are unhelpful for her. Pt continues to struggle with consistent application of skills and strategies. Pt to continue IOP level of care to increase generalization of healthy coping, decrease negative thought patterns and prevent decompensation. Time Stopped:: 13:00
--- NOTE | 2018-08-27 09:02 | BH.SGPN.GN ---
Behaviors/Verbalizations/Mental Status: []Client alert and oriented, neatly dressed and groomed. Eye contact good. Motor activity appropriate. Speech within normal limits. Affect flat, mood depleted. Thoughts linear, logical, no signs of hallucinations or delusions. Reviewed client?s symptom tracker, no risk for suicidal ideation, plan, or intent as of 08/27/18. Client Response/Progress/Benefit: []Client responded well to session, providing positive support to peers. Client has been sick that past two days and shared today she feels ?physically down.? However, despite being sick, client reports she has been able to utilize coping skills to such as mindfulness and grounding techniques to reduce anxiety. Client shared she has felt bad about missing IOP and was anxious about returning today. The group normalized client?s experience which appeared to reassure client that it is okay to miss when sick. Client?s current stressor is fear that she will have a MS flare up because she was sick. Client reported ?it?s an ongoing fear for me.? Client able to identify strategies to manage her anxiety today. Client appeared to benefit from connecting with peers and challenging anxious thoughts. Progress noted as client reports application of coping skills to prevent decompensation when she was sick. Client to continue IOP to promote gains and further increase mood stability.
--- NOTE | 2018-08-27 10:15 | BH.SGPN.GN ---
Behaviors/Verbalizations/Mental Status: []Client alert and oriented, neatly dressed and groomed. Eye contact good. Motor activity appropriate. Speech within normal limits. Affect constricted, mood dysthymic. Thoughts linear, logical, no signs of hallucinations or delusions. Client Response/Progress/Benefit: []Client was an active participant in group activity and discussion. Client connected with the topic and able to identify common barriers that keep people stuck from moving forward. Client shared it is important to identify internal barriers, because ?those we can change.? Client identified her current reality which client described as feeling depressed, sad, and lacking worth in life. Client able to identify her personal resilience factors in her current reality such as her willingness to learn, intelligence, insight that life will get better, and progress since starting IOP. Client shared her realistic, desired reality would be returning to work, using coping skills more consistently, and learning to reduce her ?baggage.? Client reported belief she is getting closer to her desired reality. Worked with group to identify barriers to reaching desired reality which include; lack of trust and cognitive distortions. Benefited from group as client was able to identify current mental health state, resilience factors, and barriers that are impacting progress.
--- NOTE | 2018-08-27 11:20 | BH.SGPN.GN ---
Behaviors/Verbalizations/Mental Status: [] Eye contact is good. Motor activity is appropriate. Appearance is neat. Speech is Appropriate. Mood is anxious. Affect is congruent. Thoughts are linear and logical. No evidence of psychosis. Client Response/Progress/Benefit: [] Pt was an active participant in group discussion and activity. Group worked together to identify obstacles and barriers that are keeping them from their desired reality. Identified distorted view of self, negative self-talk, lack of trust, procrastination, unrealistic expectations, and cognitive distortions as common barriers. Through experiential activity group then worked together to develop strategies to overcome these obstacles such as; reframing, reviewing positives, healthy distractions, baby steps, small goals, affirmations, setting boundaries, exposure, identify positive self-worth, adjusting expectations, and many more. Pt reports that she is not there yet regarding her desired reality and believing that strategy of affirmations would be beneficial. Narrative Note: []
--- NOTE | 2018-08-27 15:57 | BH.TPR ---
Treatment Plan Review Date of Admission:: 07/28/18 Date of Treatment Plan Review:: 08/27/18 Admitting Diagnoses:: F33.2 Major depression, recurrent, severe; anxiety disorder and specified Current Diagnoses:: F33.2 Major depression, recurrent, severe; anxiety disorder and specified Patient's Response to Treatment:: Pt consistently attends scheduled IOP sessions. Pt tends to be a passive participant as shown by limited contributions to group discussion. However, pt does appear engaged during group sessions as shown by her listening to others and taking notes throughout. Pt engages in group activities, often verbalizes desire to quit activity but able to manage emotions and finish activity. Pt tends to struggle with follow through of homework given in both individual and group sessions. Pt identifies follow through as one of her biggest problems. Status of Current Problems and Symptoms: Pt has made progress with reduction of improvement with completing ADL's, improved mood, improved motivation, and reduction in both anxious and depressive symptoms. Pt continues to struggle with anxiety related to thoughts of career choice, difficulty engaging in self-care activities, difficulty setting boundaries, and limited interest in getting involved in activities she used to enjoy doing. Problem #1 Problem Name:: reduce depression, feelings of hopelessness, and suicidal ideation Status of Goals:: Pt showing progress with decrease in depressive symptoms as demonstrated by DSM 5 cross cutting measure self-report scores. At intake pt scored a 6/8, with 6 representing severe, on the depression subscale and at review pt scored a 3/8, which indicates a reduction in depressive symptoms. Pt's overall functioning is improving with reporting decrease depressive symptoms and awareness of her distorted thoughts. Team Recommendations:: Team recommends pt continue current goal and objectives until consistent application of skills and functioning returns to baseline. Problem #2 Problem Name:: Stabilize anxiety level while increasing ability to function on daily basis Status of Goals:: Objective 1 - pt progressing on goal with being able to identify at least 2 healthy coping skills that have helped reduce pt's anxiety. Pt continues to struggle with application of healthy skills in certain situations that trigger her anxiety. Pt particularly struggles when anxious about something to do with her youngest son. Objective 2 - Pt showing progress with decrease in anxious symptoms as demonstrated by DSM 5 cross cutting measure self-report scores. At intake pt scored a 7/12, with 12 representing severe, on the anxiety subscale and at review pt scored a 5/12, which indicates a reduction in anxious symptoms. Pt's overall functioning is improving with awareness of anxious thought patterns and starting to utilize skills which is something pt has hx of struggling with doing. Team Recommendations:: Team recommends pt continue current goal and objectives until consistent application of skills and functioning returns to baseline.
--- NOTE | 2018-09-01 09:10 | BH.SGPN.GN ---
Behaviors/Verbalizations/Mental Status: [] Eye contact is good. Motor activity is appropriate. Appearance is casual. Speech is Appropriate. Mood is anxious. Affect is congruent. Thoughts are linear and logical. No evidence of psychosis. Reviewed daily check in sheet and no reports of suicidal ideations or intent. Client Response/Progress/Benefit: Pt was an active participant in group discussion. Emotion for today is anxious. Shared with the group that she completed a huge task over the weekend which involved have a difficult conversation with a family member. Reports that she was honest with this family member about her recent struggles with mental health. Reports that interaction was positive. Stressor was her father being in the hospital on Saturday. Overall she reports that she is getting more confident in herself and her ability to manage emotions. She has been really looking at her thoughts and whether they are realistic or not. Challenging thoughts and reframing thoughts which has helped her not feel as overwhelmed. Progress noted per patient. Benefitted from group support and encouragment. Will continue in IOP to maintain safety, prevent decompensation, and stabilize mood. Narrative Note: []
--- NOTE | 2018-09-01 10:19 | BH.SGPN.GN ---
Behaviors/Verbalizations/Mental Status: [Client alert and oriented, casually dressed and groomed. Eye contact good. Motor activity appropriate. Speech within normal limits. Affect congruent to topic being discussed, mood euthymic and anxious, positive. Thoughts linear, logical, no signs of hallucinations or delusions.] Client Response/Progress/Benefit: [Pt was an active participant in group discussion. Connected with quote, indicating that there are times pt has thought she communicated but was unclear or too vague. Pt agreed with peers that being vague, tone, and non-verbal communication can have negative impacts on relationships and reinforce mental health symptoms. Group discussed the MH benefits to having open and clear communication with support and providers. Group discussed the barriers that tend to impact clear and open communication which include: making assumptions, shutting down, non-verbal communication, tone of voice, and listening to respond not understand. Pt stated she is sometimes struggles to communicate effectively out of fear of begin rejected of hurting someone?s feelings. Pt was attentive during psycho-education on communications styles (aggressive, passive, passive-aggressive, and assertive), provided input on the pros and cons to each communication style. Pt seemed to benefit from increased insight on how communication styles impact mental health. Pt to continue IOP level of care to continue utilization of healthy coping skills, challenge distorted thoughts, improve mood stability, and prevent decompensation.] Narrative Note: []
--- NOTE | 2018-09-01 11:21 | BH.SGPN.GN ---
Behaviors/Verbalizations/Mental Status: [Client alert and oriented, casually dressed and appropriately groomed. Eye contact good. Motor activity appropriate. Speech within normal limits. Affect congruent, mood euthymic anxious. Thoughts linear, logical, no signs of hallucinations or delusions] Client Response/Progress/Benefit: [Client active participant AEB positive contributions and engagement throughout. Client reported she is either a passive communicator and that this has resulted in needs not getting met and supports not knowing when she is overwhelmed or struggling. Client took an active role during the discussion reviewing different communication styles and why each may be used, as well as how ineffective communication negatively impacts mental health and relationships. Client identified communication goal which is to practice being more assertive with her communication and discussing her mental health needs with supports. Client seemed to benefit from increased insight into how current communication style impacts mental health and identifying strategies for increasing effective communication skills. Client progressing as shown by report of improved consistency of skill application and ability to identify connection with materials discussed. Will continue IOP tx to promote mood stability, further improve daily functioning, and prevent decompensation.] Narrative Note: []
--- NOTE | 2018-09-03 09:10 | BH.SGPN.GN ---
Behaviors/Verbalizations/Mental Status: [Pt alert and oriented, casual dress, grooming appropriate. Eye contact good. Motor activity appropriate. Speech within normal limits. Affect congruent, mood euthymic, anxious. Thoughts linear, logical, no signs of hallucinations or delusions. Reviewed client?s symptom tracker, reports suicidal ideation at a 0/5, denies plan, or intent as of today.?] Client Response/Progress/Benefit: [Pt was engaged in discussion, providing input and feedback to the group. Emotion for today is anxious and indicated that current emotion is due to ongoing adjustments in learning to focus on her own needs rather than just those of others. Pt identified mental health wins as increased ability to make her own self-care a priority. Provided an example of doing so by asking to use her son?s car to come to group despite experience guilt about taking the vehicle. Additional mental health win is that she has been making a conscious effort to complete the homework for group and apply skills she has learned in the process. Pt shared current stressor is reminding herself not to take on her son?s problems as her own and practice maintaining healthy boundaries. Pt progress noted in increased insight regarding use of thought distortions and ability to challenge them during session. Pt recommended continued IOP tx to promote change behaviors, reinforce coping skills, and continue to decrease anxious sx.] Narrative Note: []
--- NOTE | 2018-09-03 10:18 | BH.SGPN.GN ---
Behaviors/Verbalizations/Mental Status: [Client alert and oriented, neat and casually dressed and groomed. Eye contact good. Motor activity appropriate. Speech within normal limits. Affect congruent, mood euthymic, anxious. Thoughts linear, logical, no signs of hallucinations or delusions.] Client Response/Progress/Benefit: [Client responded well, contributing to discussion throughout. Client appeared to connect with the topic of fear of failure. Client agreed that failure can lead to growth but that it is easy to get caught up in the negative perspective instead. Client noted struggling with high expectations and fear of letting others down, which makes it difficult to cope with failure and causes increased anxiety. Pt agreed with fellow participants who indicated that by focusing only on past failures and mistakes it can lead to negative thinking and giving up. Group identified the impacts of fear of failure on mental health which included: not trying, low self-esteem, all or nothing thoughts, avoidance, embarrassment, and increased mental health symptoms. Client agreed with peers that in order to move past failure it is important to challenge one?s perspective on failure and learn to redefine it in more positive terms. Shared that failure could also help you find an alternative/new opportunity that works better for you. Client seemed to benefit from increased awareness of how fear of failure can impact mental health. Client to continue IOP tx to promote use of healthy coping skills, further decrease depressive and anxiety related symptoms, improve boundaries, and prevent decompensation.] Narrative Note: []
--- NOTE | 2018-09-03 11:20 | BH.SGPN.GN ---
Behaviors/Verbalizations/Mental Status: [] Eye contact is good. Motor activity is appropriate. Appearance is casual. Speech is Appropriate. Mood is depressed. Affect is flat. Thoughts are linear and logical. No evidence of psychosis. Client Response/Progress/Benefit: [] Pt was an active participant in group activity. Completed fear of failure worksheet. Identified that fear of failure is keeping her from looking for a new job. Identified barriers to overcoming fear of failure as other's opinions of her and fear of her MH symptoms. Things that she can do to overcome fear of failing include; healthy distractions, affirmations, know that I have more good days than bad currently with MH symptoms, and other strategies to decrease intensity of thoughts of what others think. Benefited from identifying the impact that fear of failure has had on her life and developing strategies to overcome this. Narrative Note: []
--- NOTE | 2018-09-04 09:10 | BH.SGPN.GN ---
Behaviors/Verbalizations/Mental Status: [] Eye contact is good. Motor activity is appropriate. Appearance is casual. Speech is Appropriate. Mood is anxious. Affect is congruent. Thoughts are linear and logical. No evidence of psychosis. Reviewed daily check in sheet and no reports of suicidal ideations or intent. Client Response/Progress/Benefit: [] Pt spoke when prompted. Attentive and did provide appropriate feedback. Shared that she continues to have an open diaologue with her son regarding her mental health issues which she reports has made a positive impact on thier relationship and decrease some fear of stigma and judgement. Reports being in a a good place today and wanted to come to group. Discussed some upcoming stressors which are impacting her mental health and overall mood, however is utilizing mindfullness and thought-stopping skills. Also reports increasing awareness of cognitive distortions which has helped to reframe her thoughts. Notes that she does a great deal of predicting the future which is usually predicting something bad will occur. Progress noted. Benefited from group support and encouragment. Will continue in IOP to maintain safety, prevent decompensation, and increase coping skills. Narrative Note: []
--- NOTE | 2018-09-04 10:25 | BH.SGPN.GN ---
Behaviors/Verbalizations/Mental Status: [Client alert and oriented, casually dressed and groomed. Eye contact good. Motor activity appropriate. Speech within normal limits. Affect congruent, mood dysthymic, anxious. Thoughts linear, logical, no signs of hallucinations or delusions. ] Client Response/Progress/Benefit: [Client responded well to session, attentive and participating in discussion. Participated in discussion of things that can keep people feeling trapped or stuck in life including; isolation, lack of trust, past experiences, negative perspective, lack of awareness, denial, fear, and low self-esteem. Shared connecting specifically with fear of changing and fear of failure as keeping her stuck. Group discussed the connection between thoughts, emotions, and behaviors as well as how negative thinking can keep a person stuck. Client attentive during psychoeducation on maintenance cycles. Client able to identify negative thoughts that have reinforced depression and kept client feeling trapped. Client shared a negative thought maintaining depression as ?I?m not going to be able to succeed at my goals because I?ve made too many mistakes.? Client reported this thought caused increased anxiety, increased negative self-talk, increased fear and depression has, and led to avoidance. Appeared to benefit from gaining awareness of how negative thoughts reinforce mental health symptoms and keep people stuck. Progress noted in client?s prevent decompensation, increase emotional regulation and confidence levels, and maintain safety. ] Narrative Note: []
--- NOTE | 2018-09-04 11:30 | BH.SGPN.GN ---
Behaviors/Verbalizations/Mental Status: []Client alert and oriented, neatly dressed and groomed. Eye contact fair. Motor activity appropriate. Speech within normal limits. Affect constricted, mood anxious. Thoughts linear, logical, no signs of hallucinations or delusions. Client Response/Progress/Benefit: []Client responded well to session, quiet, but participating when prompted. Client appeared to connect with maintenance cycles and recognized how negative thinking can keep a person stuck. Client identified a negative thought that has kept her stuck. Client?s thought was ?I?m ugly.? Client shared when she thinks this way it causes client to feel lonely, depressed, self-conscious, and leads to avoidance. Client recognized that this thought is unrealistic. Client able to reframe the thought to ?I?m not ugly, I?m unique and have some positive qualities.? Client shared this thought would improve her mental health because she would be more willing to reach out to people, feel less depressed, and feel happier. Client appeared to benefit from practicing challenging negative thinking. Client has made progress in implementing healthy coping skills to reduce mental health symptoms. Client to continue IOP to promote gains and reinforce healthy coping skills.
--- NOTE | 2018-09-09 09:11 | BH.SGPN.GN ---
Addendum entered and electronically signed by Carmen Sanders LSW 09/10/18 14:54: Note Amended to include pt progress Note. Saved by error prior to completion. Pt engaged in group discussion, receptive of feedback provided by group. Emotion for today is depressed. Pt indicated that current emotion is due to experiencing some negative thoughts and ?catastrophizing? over the weekend. Pt discussed that the weekend started off with a mental health win as she had initially felt negative when she woke up on Saturday however spent time challenging negative thoughts in her thought log and was able to successfully reframe distortions. Pt discussed that she then went to some yard sales with her son and spent time with him rather than isolating. She shared that she struggled to apply these same thought challenge skills the following day when her younger son did not respond to her text messages checking in on him. Pt reports she instead began catastrophizing and worrying that he was hurt until she heard from him that he had been out of town but was safe. Pt continues to struggle with maintaining healthy boundaries with her younger son and indicates increased stress regarding the impact the relationship has had on her own mental health. Pt receptive of creating a coping plan for when son comes home for the summer as well as beginning to set small goals for improving boundaries. Progress noted in pt ability to identify current barriers and potential strategies in improving management of barriers. Benefited from reflecting upon treatment goal progress, challenging distortions, and using group support in identifying strategies for continuing to make progress towards goals. Recommended continued IOP tx to promote continued progress, reinforce coping skills, and prevent decompensation. Original Note: Behaviors/Verbalizations/Mental Status: [Pt alert and oriented, casual dress, grooming appropriate. Eye contact good, tearful during check-in. Motor activity appropriate. Speech within normal limits. Affect congruent, mood depressed, anxious. Thoughts linear, logical, no signs of hallucinations or delusions. Reviewed client?s symptom tracker, reports suicidal ideation at a 2/5 which is slightly higher than pt baseline, denies plan, or intent as of today.?Pt therapist will be informed of increase in SI reports and follow-up with pt to further assess for safety.] Client Response/Progress/Benefit: [] Narrative Note: []
--- NOTE | 2018-09-09 10:18 | BH.SGPN.GN ---
Behaviors/Verbalizations/Mental Status: [Client alert and oriented, casual appearance. Eye contact good. Motor activity appropriate. Speech within normal limits. Affect congruent, mood anxious, dysthymic. Thoughts linear, logical, no signs of hallucinations or delusions. ] Client Response/Progress/Benefit: [Pt responded well to session, contributing to discussion and attentive throughout AEB taking notes and proving feedback. Pt indicated connecting with the topic of cognitive distortions and reflected that she had just been telling the group of a time her thoughts tricked her over this past weekend. Pt did well to recognize this as catastrophizing and was able to work with the group on defining the various types of cognitive distortions and their impact on mental health functioning. Pt reported connecting with distortions of catastrophizing, mental filter, and jumping to conclusions. She noted that magnification often increases her anxiety and results in rumination. Appeared to benefit from increasing awareness of cognitive distortions and how they can impact emotions and behaviors. Progress noted in pt increased ability to recognize personal use of distortions and how they have impacted mental health and relationships as a result. Pt to continue IOP to prevent decompensation, increase boundary setting and self-care, as well as continue to reduce anxiety and depressive sx.] Narrative Note: []
--- NOTE | 2018-09-09 11:18 | BH.SGPN.GN ---
Behaviors/Verbalizations/Mental Status: []Client alert and oriented, neatly dressed and groomed. Eye contact good. Motor activity appropriate. Speech within normal limits. Affect congruent, mood euthymic, anxious. Thoughts linear, logical, no signs of hallucinations or delusions Client Response/Progress/Benefit: []Client responded well to session, providing ideas, but declining to participate at times. Client engaged in the activity and made the connection that challenging and replacing cognitive distortions takes awareness, time, and effort. Shared connecting with distortions of disqualifying the positives, mental filtering, and all or nothing thinking. Client helped the group practice challenging the example cognitive distortions and did well to identify evidence against negative thoughts. Client assisted the group in learning ways to combat negative thinking. Client worked on challenging her own distorted thoughts, but she declined to share them with the group. Client stated she wants to work on catching herself when using distortions and writing her thoughts down. Appeared to benefit from practicing thought challenging and gaining awareness of different strategies to combat distortions. Progress noted as client reports utilizing coping skills on a more consistent basis as well as states an improved mood. Client to continue IOP as she can continue to combat distorted thoughts of self.
--- NOTE | 2018-09-09 16:02 | BH.MDN_ITS ---
Multi-Disciplinary Note - Note 30-min Individual Time Started:: 12:20 Date: 09/09/18 Purpose of session/treatment goals addressed:: Purpose of session was to assess pt's current symptoms and stressors. Other topics included: identifying treatment progress, identifying barriers to progress and self-care. Eye Contact:: Good Motor Activity:: Appropriate Appearance:: Casual Speech:: Appropriate Mood:: Euthymic Affect:: Congruent Thoughts:: Linear, Logical, No evidence of hallucinations/delusions noted Staff Interventions:: Therapist used open ended questions to elicit pt's current symptoms and stressors. Therapist discussed treatment progress and elicited pt's thoughts about barriers of progress. Therapist explored with pt strategies that can help with builing a healthy relationship with pt's younger son. Therapist inquired on pt's progress with engaging in self-care activities. Therapist provided homework for pt to reengage in at least one self-care activity each day. Client Response:: Client reported over the past two weeks she has been doing well which she attributed to having her older son home from college. Client stated she spent a lot of quality time with her son and had a good time. Client shared she opened up to her son about her going to therapy for depression. Client identified by opening up to her son she thinks it improved their relationship and is modeling that going to counseling is a positive thing. Client shared a signficiant stressor continues to be her youngest son because she recognizes she has an enmeshed relationship. Client stated her emotions are negatively impacted by her son's actions and drama. Client shared she was emotionally unstable over the weekend when her son stopped talking to her and she thought he had gotten hurt or kidnapped. Client stated through discussing th e situation she believes her reaction to the situation is appropriate but still wants to work on setting clear boundaries with her son and not allow his emotions to control her. Client identified she will continue to work on improving her communication with her son and not trying to save him from negative emotions by solving his problems for him. Client shared she thinks she is progressing with increased self-awareness, ability to challenge and reframe distorted thoughts, and improved communication. Cient stated her barriers to progress to include not following through with self-care and being easily distracted. Client agreeable to completing homework of engaging in at least one self-care activity per day. Client stated she will talk with her about him helping with accountability because having IOP groups and individuals has pushed her to follow through with goals. Risks/Concerns:: Client reports passive thoughts of , denies plan or intention to date. Future focused. client's children serve as protective factors. Progress Toward Goals/Plan:: Client is progressing with increased self-awareness of distorted thoughts and ability to reframe or challenge thoughts. Client showing improved insight into barriers to progress. Client improving with follow through of healthy coping skills and recognition of unhelpful thought patterns. Client continues to struggle with own emotions from her youngest son's emotions. Client to continue IOP level of care to increase self-care activities, continue challenging and reframing distorted thoughts and prevent decompensation. Time Stopped:: 12:54
--- NOTE | 2018-09-10 09:10 | BH.SGPN.GN ---
Behaviors/Verbalizations/Mental Status: [] Eye contact is good. Motor activity is appropriate. Appearance is casual. Speech is Appropriate. Mood is depressed. Affect is flat. Thoughts are linear and logical. No evidence of psychosis. Reviewed daily check in sheet and no reports of suicidal ideations or intent. Client Response/Progress/Benefit: [] Pt spoke when prompted. Reports feeling disconnected from emotions. Struggling with setting boundaries with certain family members. She struggles with setting limits as she feels the need to fix everything for this family member. Will ruminate and take on their problems. Insight into the negative impact of people pleasing behaviors as well as possibility of enabling this person. Group provided feedback on setting boundaries and impact of people pleasing on MH. Benefited from group support, feedback, encouragement, and discussions. Will continue in IOP to maintain gains, prevent decompensation, and decrease long-standing depression. Narrative Note: []
--- NOTE | 2018-09-10 10:20 | BH.SGPN.GN ---
Behaviors/Verbalizations/Mental Status: [] Eye contact is good. Motor activity is appropriate. Appearance is causal. Speech is Appropriate. Mood is anxious. Affect is congruent. Thoughts are linear and logical. No evidence of psychosis. Client Response/Progress/Benefit: [] Pt participated in group activity, however provided little input during group discussion. Attentive. Group worked together to identify benefits to developing goals which included; gives us direction, motivates us, can increase self-esteem, increase confidence, increase awareness, helps us progress forward, and encourages personal growth. Group also identified barriers to setting and accomplishing goals which include; fear of failure, stressed by deadlines, anxiety, negative thoughts, and unrealistic expectations of ourself. Attentive during education on developing SMART goals. Benefited from increase awareness of goal-setting methods. Will continue in IOP to maintain gains, prevent decompensation, and decrease depression. Narrative Note: []
--- NOTE | 2018-09-10 11:23 | BH.SGPN.GN ---
Behaviors/Verbalizations/Mental Status: []Pt eye contact good, casually dressed, motor activity appropriate, speech normal rate and tone, mood euthymic, constricted affect, thoughts linear and intact, no evidence of delusions or hallucinations. Client Response/Progress/Benefit: []Pt listened attentively to others and provided input when elicited by therapist. Pt identified her short-term SMART goal is to play a physical game at least three times in a week. Pt stated this goal will benefit her by decreasing stress and be more physically active. Pt identified not viewing the goal as important as one obstacle that could get in the way of her accomplishing goal. Pt stated she can overcome this barrier by asking her to play a game with her and to remind herself the outcome if she doesn't follow through with goal. Pt stated another barrier is feeling too tired, which she stated she can overcome by choosing a time of day that she is most energized to engage in the activity. Pt seemed to benefit from creating a SMART goal. Pt to continue IOP level of care to challenge distorted thoughts, continue use of healthy coping and prevent decompensation. Narrative Note: []
--- NOTE | 2018-09-12 09:07 | BH.SGPN.GN ---
Behaviors/Verbalizations/Mental Status: [Pt alert and oriented, casual dress, grooming neat, appropriate. Eye contact good. Motor activity appropriate. Speech within normal limits. Affect congruent, mood euthymic, anxious. Thoughts linear, logical, no signs of hallucinations or delusions. Reviewed pt?s dx symptom tracker and pt denies any SI, plan, or intent as of this date.] Client Response/Progress/Benefit: [Pt engaged in group discussion, actively listening and able to provide some input. Emotion for today is a little bit happy. Indicated that current ?mental health wins? include completing the goal she had set for herself of mopping the kitchen floor as well as using positive self-talk to challenge feelings of depression and urges not to get out of bed this morning. She went on to express that being able to successfully achieve both made her feel accomplished and more hopeful. Pt shared trying to remind herself when feeling low that ?it doesn?t have to be that way all day?. Pt appeared to benefit from identifying current wins and progress in challenging thoughts. She went on to share current stressor as upcoming discharge from IOP program but did well to reflect that some anxiety can be good as it is motivating and that she has resources to take with her following completion of program. Pt recommended continued IOP tx to reinforce use of healthy skills, continue to reduce depression, and prevent decompensation.] Narrative Note: []
--- NOTE | 2018-09-12 11:25 | BH.SGPN.GN ---
Behaviors/Verbalizations/Mental Status: []Client alert and oriented, neatly dressed and groomed. Eye contact good. Motor activity appropriate. Speech within normal limits. Affect congruent, mood euthymic. Thoughts linear, logical, no signs of hallucinations or delusions. Client Response/Progress/Benefit: []Client attentive, did well to remain attentive during discussion and activity. She was contributing and taking notes as group brainstormed on how fixed mindset thoughts experienced in the activity impacted ability to complete the task at hand. Client indicated she had fixed thoughts at the beginning of the activity ?because I don?t like to not fully succeed.? However, by the end of the activity she challenged her fixed thoughts to ?we have another change to get it.? Worked with group to identify important components of a growth mindset. With reflection and assistance from the group she was able to apply cognitive restructuring to reframe fixed thoughts of ?I?ve been fired before so I?m no good.? Client reframed this to ?that?s BS, I?ve had many positive experiences and I can succeed again.? Benefitted from discussing benefits of growth mindset and strategies for reframing fixed thoughts. Progress noted in client?s improved mood and ability to challenge negative thoughts. Continued IOP recommended to further promote gains and increase mood stability.
== END 2018-09-12 23:59 ==
LOC: BHIOP 09:01
PROVIDERS: Family Provider Nurse Practitioner Family; PCP Nurse Practitioner Family; Referring Provider Psychiatry & Neurology Psychiatry; Visit Provider Psychiatry & Neurology Psychiatry
DX: F33.2 Major depressive disorder, recurrent severe without psychotic features (principal); F41.9 Anxiety disorder, unspecified
CPT/HCPCS: H0035; 90832; 90834; 90853

== ENCOUNTER 2018-09-15 09:00 | Outpatient (RCR) | payer OTHER, SELFPAY ==
--- NOTE | 2018-09-15 09:10 | BH.SGPN.GN ---
Behaviors/Verbalizations/Mental Status: [] Eye contact is good. Motor activity is appropriate. Appearance is casual. Speech is Appropriate. Mood is euthymic. Affect is full. Thoughts are linear and logical. No evidence of psychosis. Reviewed daily check in sheet and no reports of suicidal ideations or intent. Client Response/Progress/Benefit: [] Pt was active participant in group discussions. States I'm waking up less depressed than ever Discussed some coping and thought-reframing skills that she has begun to utilize which had helped tremendously. States I can't recall the last time I woke up and wasn't depressed. Identifying and challenging cognitive distortions specifically emotions reasoning. Emotion for today is calm. She is hopeful about the future and reports some consistency in her mood which has been shocking. Overall progress reported by pt. Benefited from group encouragement, feedback, discussion, and support. Will continue in IOP to maintain gains and prevent decompensation. Narrative Note: []
--- NOTE | 2018-09-15 10:25 | BH.SGPN.GN ---
Behaviors/Verbalizations/Mental Status: []Client alert and oriented, casually dressed. Eye contact good. Motor activity appropriate. Speech within normal limits. Affect congruent, mood euthymic. Thoughts linear, logical, no signs of hallucinations or delusions. Client Response/Progress/Benefit: []Pt responded well to session, provided input and able to reflect on content discussed throughout. Pt participated in group discussion regarding mental health benefits of change and barriers in making those changes. Identified making changes can improve self-esteem and confidence. Pt identified three small personal changes to improve mental health as: identifying and challenge distorted thoughts, increasing self-care, and expressing feelings to family. Pt identified barriers to making identified changes include: low self-esteem, not being aware of own needs, fear of not being heard or feelings being discounted. Pt appeared to benefit from gaining awareness of personal changes that would improve mental health and the barriers keeping client stuck. Progress noted in pt's increased awareness of barriers that impact ability to make changes in her life. Pt to continue IOP level of care to maintain gains, continue challenging distorted thoughts and prevent decompensation. Narrative Note: []
--- NOTE | 2018-09-15 11:26 | BH.SGPN.GN ---
Behaviors/Verbalizations/Mental Status: [Eye contact is good. Motor activity is appropriate. Appearance is casual, neat. Speech is Appropriate. Mood is dysthymic. Affect is congruent. Thoughts are linear and logical. No evidence of psychosis. ] Client Response/Progress/Benefit: [Pt was a willing and receptive participant throughout. She engaged in group activity and provided input to discussion. Pt listening throughout group discussion and able to identify connections between activity and strategies for overcoming barriers to making change. This was evidenced by taking notes, maintaining eye contact, and providing feedback to discussion. Identified a specific change she would like to make for her mental health, barriers to making that change, and a SMART goal to reach that change. Shared she would like to work on more actively discussing her emotions with her supports by starting with checking with herself regarding her emotional state. Pt discussed that this change would help to increase confidence and willingness to open up. Benefited from group as she was able to challenge herself to identify strategies to overcome barriers to change and create a plan for implementing one small change promoting personal growth. Pt set to continue in IOP to promote change behaviors, prevent decompensation, and increase small goal follow-through.] Narrative Note: []
--- NOTE | 2018-09-17 09:05 | BH.SGPN.GN ---
Behaviors/Verbalizations/Mental Status: []Client alert and oriented, casually dressed. Eye contact good. Motor activity appropriate. Speech within normal limits. Affect congruent, mood euthymic. Thoughts linear, logical, no signs of hallucinations or delusions. Reviewed client?s symptom tracker, no risk for suicidal ideation, plan, or intent as of 09/17/18. Client Response/Progress/Benefit: []Pt engaged in session as shown by pt providing input and openly processing with the group. Emotion for today is positive. Pt noted mental health positive as recognizing her distorted thought patterns of personalizing and jumping to conclusions when her outpatient therapist cancelled their appointment yesterday. Pt stated she was able to challenge the distorted thoughts by recognizing how irrational her thoughts were. Pt identified an additional positive as recognizing her was in a bad mood so she changed her response by being encouraging and positive to her . Pt stated she told her before he left for work you're going to crush it as a way to be positive and do something different than she would have in the past. Pt reported by allowing herself to be silly and positive she changed not only her own mood by impacted her husbands mood as well. Progress noted in application of thought challenge and focusing on the positive outside of treatment environment. Continued IOP tx recommended to maintain gains, prevent decompensation, and continue to challenge distorted thought patterns. Narrative Note: []
--- NOTE | 2018-09-17 10:25 | BH.SGPN.GN ---
Behaviors/Verbalizations/Mental Status: [Client alert and oriented, casually dressed. Eye contact good. Motor activity WNL. Speech appropriate rate/tone. Affect congruent, mood euthymic, positive. Thoughts linear, logical, no signs of hallucinations or delusions.?] Client Response/Progress/Benefit: [Pt was attentive, and an active listener during group discussion. This was evidenced by taking notes, nodding, and maintaining good eye contact throughout. Pt expressed connecting with the factors the group indicated may influence personal perspective. Shared identifying with past experiences and habits as influencing components to perspective. Pt benefited from connecting how perspective can impact mental health and wellness. Identified that a positive perspective can lead to improved hope and confidence in self. Pt shared changes she has seen in her own behaviors since beginning thought challenging and discussed celebratory dancing to encourage her ?s success. Pt did well to continue to maintain engaged and identify strategies for overcoming and challenging unhealthy perspective. Reports that continuing with thought logs and journaling will aide in maintaining and promoting a more positive perspective. Will continue in IOP to continue to promote healthy change behaviors, prevent decompensation, and maintain gains made. ] Narrative Note: []
--- NOTE | 2018-09-17 11:26 | BH.SGPN.GN ---
Client left group approximately ten minutes before session ended to meet with her individual therapist. Behaviors/Verbalizations/Mental Status: []Client alert and oriented, neatly dressed and groomed. Eye contact good. Motor activity appropriate. Speech within normal limits. Affect full, mood euthymic. Thoughts linear, logical, no signs of hallucinations or delusions. Client Response/Progress/Benefit: []Client responded well to session, attentive and contributing to discussion. Client attentive and took notes as the group discussed the impact perspective has on one?s ability to recognize and utilize strengths. The group identified that a negative perspective causes people to minimize strengths, shy away from abilities, and disqualify positives. Client able to identify personal strengths she possesses and stated, ?I circled more than I thought.? Client left group before she was able to share her strengths with group. Client stated she does not always recognize these strengths due to fear of failure, negative thinking, and mental filtering. Client helped the group identify strategies to make strengths easier to access. Some of these strategies included: looking at the big picture, awareness of distortions, and keeping track of wins. Benefited from acknowledging personal strengths and coming up with strategies to access her strengths. Client demonstrating progress AEB improved mood stability and outlook. Client stated she is beginning to feel more optimistic and confident in her coping abilities. Client to continue IOP to further promote gains and reinforce coping skills.
--- NOTE | 2018-09-18 10:11 | BH.MDN_ITS ---
Multi-Disciplinary Note - Note 30-min Individual Time Started:: 12:08 Date: 09/17/18 Purpose of session/treatment goals addressed:: Purpose of session was to assess pt's current symptoms and stressors. Other topics: identifying IOP treatment progress, establishing goals for the week, and discussing aftercare plan. Eye Contact:: Good Motor Activity:: Appropriate Appearance:: Casual Speech:: Appropriate Mood:: Euthymic Affect:: Congruent Thoughts:: Linear, Logical, No evidence of hallucinations/delusions noted Staff Interventions:: Therapist used open ended questions to elicit pt's current symptoms and stressors. Therapist reviewed treatment progress since starting IOP. Therapist explored pt's thoughts about frequency of individual counseling once discharges from IOP. Therapist collaborated with pt to identify goals for the week. Client Response:: Pt reported yesterday when she was able to identify and challenge her distorted thoughts she was proud of herself. Pt stated she is able to see how much she progressed since starting IOP because it is becoming easier to identify and challenge her unhealthy thoughts. Pt reported she also notes progress with applying the skills she has learned, which pt noted is something she has struggled with throughout her life. Pt shared she has been trying to engage in more movement activities becuase she has found those types of activities improve her mood. Pt stated she has been researching getting a corn hole set and the other day played her trumpet which is something she hasn't done in years. Pt reported for aftercare she plans to return to her already established individual counselor. Pt shared she is concerned her counselor won't be able to accomodate weekly counseling which pt stated she believes weekly counseling is something she needs currently. Pt stated she also wants to communicate to her counselor that she likes to recieve homework. Pt accepted feedback from therapist about creating a self-accounatability chart to keep track of her homework instad of relying on the therapist to hold her accountable. Pt reported she will contact her therpaist this week to see if therapist can meet with her weekly and if therapist cannot then pt with inquire about getting a new therapist that can accomodate weekly sessions. Pt identified another goal this week is to continue engaging in movement activites like corn hole, playing the trumpet, etc. Pt reported another goal is to continue to identify and challenge distorted thoughts. Risks/Concerns:: Pt denies suicidal ideation, plan or intention to date. Progress Toward Goals/Plan:: Pt demonstrating progress as shown by pt identifying distorted thought patterns and reframing to rational responses. Pt also progressing with focusing on the postive and being encouraging to others. Pt showing progress with embracing a more laid back attitude, allowing herself to be silly at times. Plan is for pt to discharge from [facility] on Saturday09/22/18. Time Stopped:: 12:34
--- NOTE | 2018-09-22 10:20 | BH.SGPN.GN ---
Behaviors/Verbalizations/Mental Status: [] Eye contact is good. Motor activity is appropriate. Appearance is casual. Speech is Appropriate. Mood is depressed. Affect is flat. Thoughts are linear and logical. No evidence of psychosis. Client Response/Progress/Benefit: [] Pt was an active participant in group discussion and activity. Processed quote of the day with peers. Group worked together to identify barriers to making changes or taking action in their lives which included; lack of self-awareness, old habits, one's mindset, fear of failure, negative emotions (depression, anxiety, etc..), lack of resources, and other people. Group also identified that benefits of change which included; improved relationships, increased communication, improved mental wellness, increased confidence, and feelings of accomplishment. Discussion on the costs of not taking action or making changes which included; being stuck, no growth, lose friendships, impairs functioning, and not changes is a form of self-sabotage. Pt attentive during psychoeducation on the zones of change. Benefited from group through awareness of barriers and benefits to taking action towards mental wellness. Narrative Note: []
--- NOTE | 2018-09-22 11:23 | BH.SGPN.GN ---
Behaviors/Verbalizations/Mental Status: [Client alert and oriented. Appearance is casual and neat, appropriate grooming. Eye contact good. Motor activity WNL. Speech appropriate rate and tone. Affect congruent. mood euthymic. Thoughts linear, logical, no signs of hallucinations or delusions.] Client Response/Progress/Benefit: [Pt provided input and actively engaged in discussion AEB providing input and taking notes throughout. Pt benefitted from reflecting upon the mental health benefits of taking small actionable steps towards addressing barriers and promoting healthy change in daily life. Pt did well to work with the group on completing the example Change Action Plan and applying the skills learned to pt own Action Plan. Pt identified wanting to make strides towards increased willingness to reach out to supports and ask for help when needed. Pt shared this would continue to increase confidence and improve relationships with supports. Pt shared she would begin with reaching out to her and discussing her mental health needs and progress to begin feeling more comfortable about doing so. Pt progress noted in ability to identify concrete and realistic steps to addressing barriers to actionable change identified. Recommended continued IOP tx to prevent decompensation, maintain gains, and promote healthy change behaviors.] Narrative Note: []
--- NOTE | 2018-09-22 11:28 | BH.MDN ---
Multi-Disciplinary Note - Note 45-min Individual Time Started:: 09:16 Date: 09/22/18 Purpose of session/treatment goals addressed:: Purpose of session was to assess pt's current symptoms and stressors. Other topics: identifying treatment progress, strategies to maintain success, and solidifying aftercare plans. Eye Contact:: Good Motor Activity:: Appropriate Appearance:: Neat Speech:: Appropriate Mood:: Euthymic Affect:: Congruent Thoughts:: Linear, Logical, No evidence of hallucinations/delusions noted Staff Interventions:: Therapist used open ended questions to elicit pt's current symptoms and stressors. Therapist explored pt's thoughts about treatment progress since starting IOP. Therapist collaborated with pt to identify strategies to help pt maintain success and progress post-discharge. Therapist elicited pt's aftercare plans for follow up care. Client Response:: Pt reported she woke up today and was feeling anxious about today being her last day in the program. Pt stated instead of trying to make the feelings go away she allowed herself to feel the feelings. Pt reported she found it helpful to sit with the uncomfortable instead of trying to dsitract herself. Pt stated she has made so much progress since starting IOP. Pt identified progress to include decrease in both depressive and anxious symptoms. Pt reported she has progressed with having a more willing attitude. Pt described a willing attitude as her engaging in activities that she would have not done in the past like dancing, juggling, and karaokee. Pt stated she has progressed with identifying and challenging distorted thought patterns with increased ease. Patient identified the following strategies to help her maintain success: Use journal to help with self-accountability and tracking progress, continue to identify and challenge distorted thought patterns, be aware of your perception of situations ? keeping yourself in check, continue daily self-care activities, engage in movement type activities, setting daily and weekly goals to help keep self-accountable and encourages you to utilize skills learned, take time to identify mental health wins or positives from your day and week. Pt reported she has an appointment with outpatient counselor tomorrow and appointment with psychiatrist on this week. Risks/Concerns:: Pt denies current suicidal thoughts, ideation and plan. Progress Toward Goals/Plan:: Pt identified progress to include decrease in both depressive and anxious symptoms. Pt reported she has progressed with having a more willing attitude. Pt described a willing attitude as her engaging in activities that she would have not done in the past like dancing, juggling, and karaokee. Pt stated she has progressed with identifying and challenging distorted thought patterns with increased ease. Pt has made significant progress since starting IOP and no longer meets criteria for IOP level of care. Pt to discharge from IOP today and follow up with already established outpatient counselor and psychiatrist at [facility]. Time Stopped:: 09:52
--- NOTE | 2018-09-22 12:18 | BH.AFTERPLAN ---
Aftercare Plan - Demographics Treatment End Date:: 09/22/18 Psychiatrist:: Sharan Jessica Psychiatrist Office #:: [phone] [facility]/IOP Therapist:: Latrice Lal Therapist Phone #:: [phone] - Medications Home Medications: Home Medications Lorazepam [Ativan] 0.5 mg PO BID PRN PRN 07/30/18 Vortioxetine Hydrobromide [Trintellix] 10 mg PO DAILY 07/30/18 - Plan Details Progress/Aftercare Plan Details:: Patient has progressed with decrease in both depressive and anxious symptoms as evidenced by self-report scores on DSM 5 cross cutting measure. Patient has 66% reduction in depressive symptoms based on admission and discharge self-report score on DSM 5 cross cutting measure. Patient has 43% reduction in anxious symptoms based on admission and discharge self-report score on DSM 5 cross cutting measure. Patient identifies she has progressed with having a more willing attitude. Patient has been more willing to engage in activities that she would have not done in the past like dancing, juggling, and karaokee. Patient stated she has progressed with identifying and challenging distorted thought patterns with increased ease. Strategies for Success:: Use journal to help with self-accountability and tracking progress, continue to identify and challenge distorted thought patterns, be aware of your perception of situations ? keeping yourself in check, continue daily self-care activities, engage in movement type activities, setting daily and weekly goals to help keep self-accountable and encourages you to utilize skills learned, take time to identify mental health wins or positives from your day and week. - Appointments Appointments/Referrals to Other Services:: 1. Follow up appointment scheduled with outpatient therapist at [facility] for 09/23/18. 2. Follow up appointment scheduled with oupatient psychiatrist at [facility] for 09/24/18.
--- NOTE | 2018-09-22 14:20 | BH.DS ---
Discharge Summary - Demographics Date of Admission:: 07/28/18 Discharge Date: 09/22/18 Presenting Problems at Admission:: Pt presented at admssion with worsening depression and anxiety. Pt endorsed decreased sleep, poor energy, decreased motivation, poor concentration, and passive thoughts of . Pt also presented with feeling tense and ruminations about many things in her life. 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 Also, she has become an empty-clarence after her son left for college. Discharge Diagnoses:: F33.2 Major depression, recurrent, severe; anxiety disorder and specified Reason for Discharge:: Pt has made significant progress since starting IOP level of care and no longer meets criteria for IOP level of care. - Treatment Progress During Treatment & Response: Pt identified progress with decrease in both depressive and anxious symptoms AEB pt's self-report scores on the DSM 5 cross-cutting measure. At admission pt scored a 6/8, with 8 representing severe, for depression subscale. At discharge pt scored a 2/8 for depression subscale which represents reduction to depressive symptoms. At admission pt scored a 7/12, with 12 representing severe, for anxiety subscale. At discharge pt scored a 4/12 for depression subscale which represents reduction to anxious symptoms. Pt reported she has progressed with having a more willing attitude. Pt described a willing attitude as her engaging in activities that she would have not done in the past like dancing, juggling, and karaokee. Pt stated she has progressed with identifying and challenging distorted thought patterns with increased ease. Pt consistently attended [facility], provided input at times during group sessions, often completed homework from individual sessions, and engaged in activities. Issues Still to be Addressed:: Pt could benefit from continued focus on decreasing co-dependent relationship pt identifies having with her youngest son. Pt also could benefit from working through guilt pt continues to express connected with past mistakes. Reinforcement of healthy skills pt has learned including: challenging distorted thoughts, journaling, engaging in movement activities, and trying new things. Discharge Recommendations/Instructions:: 1. Follow up appointment scheduled with outpatient therapist at [facility] for 09/23/18. 2. Follow up appointment scheduled with oupatient psychiatrist at [facility] for 09/24/18. Discharge Handout: Complete Discharge Handout with client on aftercare options and continuity of care.
--- NOTE | 2018-09-23 12:17 | BH.MDN_ITS ---
Multi-Disciplinary Note - Note 45-min Individual Time Started:: 09:16 Date: 09/22/18 Purpose of session/treatment goals addressed:: Purpose of session was to assess pt's current symptoms and stressors. Other topics: identifying treatment progress, strategies to maintain success, and solidifying aftercare plans. Eye Contact:: Good Motor Activity:: Appropriate Appearance:: Neat Speech:: Appropriate Mood:: Euthymic Affect:: Congruent Thoughts:: Linear, Logical, No evidence of hallucinations/delusions noted Staff Interventions:: Therapist used open ended questions to elicit pt's current symptoms and stressors. Therapist explored pt's thoughts about treatment progress since starting IOP. Therapist collaborated with pt to identify strategies to help pt maintain success and progress post-discharge. Therapist elicited pt's aftercare plans for follow up care. Client Response:: Pt reported she woke up today and was feeling anxious about today being her last day in the program. Pt stated instead of trying to make the feelings go away she allowed herself to feel the feelings. Pt reported she found it helpful to sit with the uncomfortable instead of trying to dsitract herself. Pt stated she has made so much progress since starting IOP. Pt identified progress to include decrease in both depressive and anxious symptoms. Pt reported she has progressed with having a more willing attitude. Pt described a willing attitude as her engaging in activities that she would have not done in the past like dancing, juggling, and karaokee. Pt stated she has progressed with identifying and challenging distorted thought patterns with increased ease. Patient identified the following strategies to help her maintain success: Use journal to help with self-accountability and tracking progress, continue to identify and challenge distorted thought patterns, be aware of your perception of situations ? keeping yourself in check, continue daily self-care activities, engage in movement type activities, setting daily and weekly goals to help keep self-accountable and encourages you to utilize skills learned, take time to identify mental health wins or positives from your day and week. Pt reported she has an appointment with outpatient counselor tomorrow and appointment with psychiatrist on this week. Risks/Concerns:: Pt denies current suicidal thoughts, ideation and plan. Progress Toward Goals/Plan:: Pt identified progress to include decrease in both depressive and anxious symptoms. Pt reported she has progressed with having a more willing attitude. Pt described a willing attitude as her engaging in activities that she would have not done in the past like dancing, juggling, and karaokee. Pt stated she has progressed with identifying and challenging dis torted thought patterns with increased ease. Pt has made significant progress since starting IOP and no longer meets criteria for IOP level of care. Pt to discharge from [facility] today and follow up with already established outpatient counselor and psychiatrist at [facility]. Time Stopped:: 09:52
--- NOTE | 2018-09-23 14:37 | BH.DS_ITS ---
Discharge Summary - Demographics Date of Admission:: 07/28/18 Discharge Date: 09/22/18 Presenting Problems at Admission:: Pt presented at admssion with worsening depression and anxiety. Pt endorsed decreased sleep, poor energy, decreased motivation, poor concentration, and passive thoughts of . Pt also presented with feeling tense and ruminations about many things in her life. 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 Also, she has become an empty- clarence after her son left for college. Discharge Diagnoses:: F33.2 Major depression, recurrent, severe; anxiety disorder and specified Reason for Discharge:: Pt has made significant progress since starting IOP level of care and no longer meets criteria for IOP level of care. - Treatment Progress During Treatment & Response: Pt identified progress with decrease in both depressive and anxious symptoms AEB pt's self-report scores on the DSM 5 cross-cutting measure. At admission pt scored a 6/8, with 8 representing severe, for depression subscale. At discharge pt scored a 2/8 for depression subscale which represents reduction to depressive symptoms. At admission pt scored a 7/12, with 12 representing severe, for anxiety subscale. At discharge pt scored a 4/12 for depression subscale which represents reduction to anxious symptoms. Pt reported she has progressed with having a more willing attitude. Pt described a willing attitude as her engaging in activities that she would have not done in the past like dancing, juggling, and karaokee. Pt stated she has progressed with identifying and challenging distorted thought patterns with increased ease. Pt consistently attended [facility], provided input at times during group sessions, often completed homework from individual sessions, and engaged in activities. Issues Still to be Addressed:: Pt could benefit from continued focus on decreasing co-dependent relationship pt identifies having with her youngest son. Pt also could benefit from working through guilt pt continues to express connected with past mistakes. Reinforcement of healthy skills pt has learned including: challenging distorted thoughts, journaling, engaging in movement activities, and trying new things. Discharge Recommendations/Instructions:: 1. Follow up appointment scheduled with outpatient therapist at [facility] for 09/23/18. 2. Follow up appointment scheduled with oupatient psychiatrist at [facility] for 09/24/18. Discharge Handout: Complete Discharge Handout with client on aftercare options and continuity of care.
--- NOTE | 2018-09-23 14:42 | BH.IGGP_ITS ---
Aftercare Plan - Demographics Treatment End Date:: 09/22/18 Psychiatrist:: Sharan Jessica Psychiatrist Office #:: [phone] [facility]IOP Therapist:: Latrice Lal Therapist Phone #:: [phone] - Medications Home Medications: Home Medications Lorazepam [Ativan] 0.5 mg PO BID PRN PRN 07/30/18 Vortioxetine Hydrobromide [Trintellix] 10 mg PO DAILY 07/30/18 - Plan Details Progress/Aftercare Plan Details:: Patient has progressed with decrease in both depressive and anxious symptoms as evidenced by self-report scores on DSM 5 cross cutting measure. Patient has 66% reduction in depressive symptoms based on admission and discharge self-report score on DSM 5 cross cutting measure. Patient has 43% reduction in anxious symptoms based on admission and discharge self-report score on DSM 5 cross cutting measure. Patient identifies she has progressed with having a more willing attitude. Patient has been more willing to engage in activities that she would have not done in the past like dancing, juggling, and karaokee. Patient stated she has progressed with identifying and challenging distorted thought patterns with increased ease. Strategies for Success:: Use journal to help with self-accountability and tracking progress, continue to identify and challenge distorted thought patterns, be aware of your perception of situations ? keeping yourself in check, continue daily self-care activities, engage in movement type activities, setting daily and weekly goals to help keep self-accountable and encourages you to utilize skills learned, take time to identify mental health wins or positives from your day and week. - Appointments Appointments/Referrals to Other Services:: 1. Follow up appointment scheduled with outpatient therapist at [facility] for 09/23/18. 2. Follow up appointment scheduled with oupatient psychiatrist at [facility] for 09/24/18.
== END 2018-09-22 14:00 | disposition home or self-care (01) ==
LOC: BHIOP 09:00
PROVIDERS: Family Provider Nurse Practitioner Family; PCP Nurse Practitioner Family; Referring Provider Psychiatry & Neurology Psychiatry; Visit Provider Psychiatry & Neurology Psychiatry
DX: F33.2 Major depressive disorder, recurrent severe without psychotic features (principal); F41.9 Anxiety disorder, unspecified; Z79.899 Other long term (current) drug therapy
CPT/HCPCS: H0035; 90832; 90834; 90853